=== PATIENT | female | born 1945 | race Caucasian/White ===

== ENCOUNTER 2021-05-17 14:08 | Emergency (ER) | payer MEDICARE, SELFPAY ==
[2021-05-17] VITALS (7 sets, daily range): BP systolic 108–113; BP diastolic 58–88; PULSE 80–94; RESP 16–27; TEMP 37.3; O2SAT 88–100
--- NOTE | ~2021-05-17 | XR_ITS ---
XR chest 2V DATE: 05/17/2021 16:44 INDICATION: Cough, shortness of breath, hypertension TECHNIQUE: PA and lateral views COMPARISON: None FINDINGS: Reviewed bilateral hyperinflation suggesting COPD. There is minimal atelectasis or infiltra te at the lung bases. No pulmonary infiltrate or consolidation is noted otherwise. No pleural effusion or pulmonary vascular congestion or pneumothorax. There is cardiomegaly and extensive thoracic aortic calcification. Pectus excavatum. No hilar or mediastinal enlargement. There is diffuse osteopenia. IMPRESSION: Bilateral hyperinflation suggesting COPD Cardiomegaly Aortic atherosclerosis Minimal infiltrate or atelectasis at the lung bases Reviewed, dictated and finalized at location A.
--- NOTE | 2021-05-17 16:32 | ECG_ITS ---
Measurements Intervals [place] Rate: 81 P: PA: 0 QRS: 67 QRSD: 90 T: 13 QT: 331 QTc: 385 Interpretive Statements ATRIAL FIBRILLATION DELAYED PRECORDIAL R/S TRANSITION BASELINE ARTIFACT- I, II, III, AVR, AVL, V3, V6 ABNORMAL ECG Electronically Signed On 05-18-2021 6:31:43 CDT by Carl Johnson D.O.
[2021-05-17 16:46] LABS: Basophils Percent Auto 0.6 % (0.2-1.2); Eosinophils Percent Auto 0.6 % (0-4.4); Hematocrit 37.4 % (37.0-47.0); Immature Granulocyte Absolute 0.04 K/mm3 (0.00-0.031); Immature Granulocyte Percent A 0.8 % (0-0.5); Lymphocytes Absolute Auto 0.53 K/mm3 (0.9-3.2); Mean Corpuscular HGB Conc 29.4 g/dl (32-36); Mean Corpuscular Hemoglobin 23.9 pg (26-34); Mean Corpuscular Volume 81.3 fl (80-100); Mean Platelet Volume 11.2 fl (7.4-10.4); Monocytes Absolute Auto 0.5 K/mm3 (0.1-0.6); Monocytes Percent Auto 9.6 % (2.6-8.5); Neutrophils Absolute Auto 3.7 K/mm3 (1.3-6.7); Neutrophils Percent Auto 77.4 % (45.5-73.1); Platelet Count Result 135 k/mm3 (150-375); Red Cell Distribution Width 18.9 % (11.5-14.5); White Blood Count 4.8 K/mm3 (4.5-10.0)
[2021-05-17 17:06] LABS: Anisocytosis 1+ (NORMAL); Ovalocytes 2+ (NORMAL); Platelet Estimate Adequate (Adequate)
[2021-05-17 17:07] LABS: Hypochromasia 1+ (NORMAL); Tear Drop Cells 1+ (NORMAL)
[2021-05-17 17:08] LABS: Anion Gap 10 mmol/L (8-16); Blood Urea Nitrogen 9 mg/dL (7-17); Carbon Dioxide 23 mmol/L (22-30); Chloride 101 mmol/L (98-107); Estimated CRCL calculation 59 ml/min; Estimated Glomerular Filt Rate > 60; Glucose 86 mg/dL (65-110); Potassium 4.5 mmol/L (3.4-5.0); Sodium 134 mmol/L (137-145)
[2021-05-17] MEDS: ALBUTEROL SULFATE NEB 2.5 MG/0.5 ML INH 5 MG INHALATION (17:33)
[2021-05-17] MEDS: IPRATROPIUM BR 0.02% INH SOLN 0.5 MG/2.5 ML VIAL INHALATION (17:34)
[2021-05-17] MEDS: methylPREDNISolone SOD SUCC 125 MG VIAL IV PUSH (19:03)
--- NOTE | 2021-05-17 19:05 | ED.SOB ---
HPI - SOB/Dyspnea General Chief Complaint: Shortness of Breath/Dyspnea Stated Complaint: cough Time Seen by Provider: 05/17/21 16:40 Source: patient Mode of arrival: ambulatory Limitations: no limitations History of Present Illness HPI Narrative: 25-year-old with a history of pulmonary hypertension, COPD, A. fib here with complaints of cough since yesterday. Patient states that she coughed all night long finally took 1 hydrocodone tablet and felt little better. She denied any fever. Cough is nonproductive. No history of chest pain or shortness of breath. MD elicited complaint: cough Pertinent past history: COPD Onset (ago): day(s) (1) Timing: intermittent Severity: moderate Exacerbating factors: nothing Known history of: COPD Associated symptoms: denies other symptoms Related Data Allergies Allergy/AdvReac Type Severity Reaction Status Date / Time iodine Allergy Unknown Verified 05/17/21 17:37 Penicillins Allergy Unknown Verified 05/17/21 17:37 Sulfa (Sulfonamide Allergy Unknown Verified 05/17/21 17:37 Antibiotics) Review of Systems Review of Systems: All systems reviewed & are unremarkable except as noted in HPI and below Constitutional: Constitutional: Reports no additional constitutional complaints Eyes: Eyes: Reports no additional eye complaints ENT: Reports system reviewed and no additional complaints, except as documented Cardiovascular: Cardiovascular: Reports no additional cardiovascular complaints Respiratory: Respiratory: Reports as per HPI Gastrointestinal: Gastrointestinal: Reports no additional gastrointestinal complaints Musculoskeletal: Musculoskeletal: Reports no additional musculoskeletal complaints Integumentary/Breasts: Skin/Breast: Reports system reviewed and no additional complaints, except as docu Neurologic: Reports system reviewed and no additional complaints, except as documented Psychiatric: Psychiatric: Reports no additional psychiatric complaints Exam Narrative: GENERAL: Well-appearing, well-nourished, and in no acute distress. HEAD: Normocephalic, atraumatic. EYES: PERRLA and EOMI. NECK: Supple. No adenopathy or masses. No carotid bruits or JVD CHEST: Bilateral mild wheezing poor air entry. HEART: Irregularly irregular. No murmur heard. Normal peripheral pulses. ABDOMEN: Soft, nontender, nondistended, normal active bowel sounds. EXTREMITIES: Normal range of motion. No edema. SKIN: Warm, dry, no rash. NEURO: No focal deficits. Alert and oriented x3. PSYCH: Normal mood and affect Course Course Emergency Course: Patient states that she is feeling much better after nebulizer treatment, informed her about her lab work, x-ray findings. Patient states that she wants to go home. Advised to take antibiotic as prescribed. Vital Signs Vital signs: Vital Signs Temperature 37.3 C 05/17/21 16:28 Pulse Rate 89 05/17/21 16:28 Respiratory Rate 18 05/17/21 16:28 Blood Pressure 113/88 05/17/21 16:28 Pulse Oximetry 88 L 05/17/21 16:28 Temperature 37.3 C 05/17/21 16:28 Pulse Rate 93 05/17/21 19:01 Respiratory Rate 27 H 05/17/21 19:01 Blood Pressure 108/67 05/17/21 19:01 Pulse Oximetry 95 05/17/21 19:01 MDM - SOB/Dyspnea Lab Data Result diagrams: 05/17/21 16:36 05/17/21 16:36 Labs: Lab Results 05/17/21 05/17/21 Range/Units 16:36 16:36 WBC 4.8 (4.5-10.0) K/mm3 RBC 4.60 (4.2-5.4) M/mm3 Hgb 11.0 L (12.0-15.0) g/dL Hct 37.4 (37.0-47.0) % MCV 81.3 (80-100) fl MCH 23.9 L (26-34) pg MCHC 29.4 L (32-36) g/dl RDW 18.9 H (11.5-14.5) % Plt Count 135 L (150-375) k/mm3 MPV 11.2 H (7.4-10.4) fl Immature Gran % (Auto) 0.8 H (0-0.5) % Neut % (Auto) 77.4 H (45.5-73.1) % Lymph % (Auto) 11.0 L (18.3-44.2) % [place] % (Auto) 9.6 H (2.6-8.5) % Eos % (Auto) 0.6 (0-4.4) % Baso % (Auto) 0.6 (0.2-1.2) % Lymph # (Auto) 0.53 L (0.9-3.2) K/mm3 Terry # (Auto) 0.5 (
== END 2021-05-17 19:36 | disposition home or self-care (01) ==
PROVIDERS: Emergency Medicine; Emergency Provider Family Medicine; PCP Student in an Organized Health Care Education/Training Program
DX: I48.21 Permanent atrial fibrillation (principal); J40 Bronchitis, not specified as acute or chronic; J44.9 Chronic obstructive pulmonary disease, unspecified; I27.20 Pulmonary hypertension, unspecified
CPT/HCPCS: 36415; 71046; 80048; 85025; 93005; 94640; 96374; 99284; J2930

== ENCOUNTER 2022-05-02 12:07 | Emergency (ER) | payer MEDICARE, SELFPAY ==
--- NOTE | ~2022-05-02 | XR_ITS ---
EXAMINATION: XR chest 2V DATE: 05/02/2022 13:06 INDICATION: Cough and dyspnea on exertion TECHNIQUE: PA and lateral views of the chest are obtained. COMPARISON: 05/17/2021 FINDINGS: The lungs are hyperinflated but free of acute opacities. No pleural effusion or pneumothora x. Cardiomegaly is noted. There is severe thoracic spondylosis. IMPRESSION: 1. Hyperinflation without acute cardiopulmonary abnormality. Reviewed, dictated and finalized at location A.
[2022-05-02 12:29] VITALS: BP 100/39; PULSE 80; RESP 20; TEMP 36.8; O2SAT 99
--- NOTE | 2022-05-02 15:58 | ED.URI ---
HPI - URI/Sore Throat General Chief Complaint: Upper Respiratory Infection Stated Complaint: coughing attacks with mucus Time Seen by Provider: 05/02/22 15:28 Source: patient Mode of arrival: ambulatory Limitations: no limitations History of Present Illness HPI Narrative: This is a 76 year old female that presents to the ER for productive cough. Ongoing over the last 2 weeks. Associated with congestion and rhinorrhea. Denies fever or shortness of breath. Related Data Home Medications Medication Instructions Recorded Confirmed ambrisentan 10 mg tablet (Letairis) 10 mg PO DAILY 05/23/21 07/12/21 apixaban 5 mg tablet (Eliquis) 5 mg PO BID 05/23/21 07/12/21 digoxin 125 mcg (0.125 mg) tablet 125 mcg PO DAILY 05/23/21 07/12/21 metoprolol tartrate 25 mg tablet See Rx Instructions PO .COMPLEX 05/23/21 07/12/21 selexipag 600 mcg tablet (Uptravi) 600 mcg PO BID 05/23/21 07/12/21 sildenafil (pulm.hypertension) 20 See Rx Instructions .Route .COMPLEX 05/23/21 07/12/21 mg tablet Allergies Allergy/AdvReac Type Severity Reaction Status Date / Time iodine Allergy Unknown Verified 05/02/22 15:18 Penicillins Allergy Unknown Verified 05/02/22 15:18 Sulfa (Sulfonamide Allergy Unknown Verified 05/02/22 15:18 Antibiotics) Review of Systems Review of Systems: CONSTITUTIONAL: Denies fever ENT: Reports rhinorrhea, congestion CARDIOVASCULAR: Denies chest pain RESPIRATORY: Reports cough. Denies dyspnea. All systems reviewed & are unremarkable except as noted in HPI and below PMFSH Past Medical History Medical History Allergies Asthma COPD (chronic obstructive pulmonary disease) GERD (gastroesophageal reflux disease) Migraine Old [place] (myocardial infarction) Pulmonary hypertension Family History Family History Unknown Alcoholism Carcinoma of colon Heart disease Emphysema lung Social History Social History Alcohol intake: never Substance use: current Substance use type: marijuana Other substance usage details: (Gummies) Exam Narrative: GENERAL: Well-appearing, well-nourished, and in no acute distress. HEAD: Normocephalic, atraumatic. EYES: EOMI. ENT: Nares clear, no rhinorrhea or epistaxis. Mucous membranes moist. Oropharynx without tonsillar hypertrophy exudate or other lesions. NECK: Supple. No adenopathy or masses. CHEST: No respiratory distress. Scattered wheezes. No rales or rhonchi HEART: Regular rate and rhythm. No murmur heard. Normal peripheral pulses. EXTREMITIES: Normal range of motion. No edema. SKIN: Warm, dry, no rash. NEURO: No focal deficits. Alert and oriented x3. PSYCH: Normal mood and affect Course Vital Signs Vital signs: Vital Signs Temperature 98.2 F 05/02/22 12:29 Pulse Rate 80 05/02/22 12:29 Respiratory Rate 20 05/02/22 12:29 Blood Pressure 100/39 L 05/02/22 12:29 Pulse Oximetry 99 05/02/22 12:29 Oxygen Delivery Room Air 05/02/22 12:29 Temperature 98.2 F 05/02/22 12:29 Pulse Rate 80 05/02/22 16:26 Respiratory Rate 18 05/02/22 16:26 Blood Pressure 100/39 L 05/02/22 12:29 Pulse Oximetry 99 05/02/22 12:29 Oxygen Delivery Room Air 05/02/22 15:15 MDM - URI/Sore Throat MDM Narrative Medical decision making narrative: Patient presents emergency department for productive cough and wheezing. Worsening over the last 2 weeks. Patient with mild wheezing on exam. She is afebrile and nontoxic-appearing. Her vitals are stable. Influenza and COVID screens are negative. Chest x-ray without acute cardiopulmonary abnormality. Patient will be started on steroids and antibiotic for COPD exacerbation. She is to follow-up with her primary care provider. She was given warnings to return to the ER Lab Data Labs: Lab Results 05/02/22 Range/Units 16:28 Influenza A (RT
[2022-05-02 16:16] VITALS: PULSE 80; RESP 18
[2022-05-02] MEDS: IPRATROPIUM BR 0.02% INH SOLN 0.5 MG/2.5 ML VIAL INHALATION (16:17)
[2022-05-02 16:26] VITALS: PULSE 80; RESP 18
[2022-05-02 17:11] LABS: Influenza A QL RT-PCR Negative (Negative); Influenza B QL RT-PCR Negative (Negative); SARS-CoV-2 RNA PCR Negative
[2022-05-02 17:24] VITALS: BP 124/72; PULSE 93; RESP 20; O2SAT 99
== END 2022-05-02 17:37 | disposition home or self-care (01) ==
PROVIDERS: Physician Assistant; Emergency Provider Emergency Medicine; PCP Family Medicine
DX: J44.1 Chronic obstructive pulmonary disease with (acute) exacerbation (principal); Z20.822 Contact with and (suspected) exposure to COVID-19; K21.9 Gastro-esophageal reflux disease without esophagitis; I25.2 Old myocardial infarction; I27.20 Pulmonary hypertension, unspecified; Z79.01 Long term (current) use of anticoagulants
CPT/HCPCS: 71046; 87502; 94640; 96372; 99283; C9803; J1100; U0003; U0005

== ENCOUNTER 2022-05-04 03:12 | Inpatient (IN) | payer MEDICARE, SELFPAY ==
[2022-05-04] VITALS (46 sets, daily range): BP systolic 97–152; BP diastolic 52–94; PULSE 56–166; RESP 16–40; TEMP 36.1–37; O2SAT 93–100; BMI 19.5
--- NOTE | 2022-05-04 | ECG_ITS ---
Measurements Intervals [place] Rate: 97 P: [place]: 0 QRS: 68 QRSD: 93 T: 7 QT: 332 QTc: 423 Interpretive Statements ATRIAL FIBRILLATION MODERATE ST DEPRESSION [0.05+ mV ST DEPRESSION] COMPARED TO ECG 05/04/2022 03:18:43 VENTRICULAR RESPONSE TO ATRIAL FIB IS NOW CONTROLLED Electronically Signed On 05-04-2022 14:03:09 CDT by Darrion Zhang M.D.
--- NOTE | ~2022-05-04 | CT_ITS ---
EXAMINATION:CT diagnostic chest wo con DATE: 05/08/2022 11:02 INDICATION: Respiratory failure. TECHNIQUE: Computed tomography (CT) of the chest was performed without intravenous contrast. Automate d exposure control and iterative reconstruction technique were employed. The dose-length product (DLP ) was 156.71 mGy-cm. COMPARISON: Chest single view 05/07/2022 FINDINGS: There are small pleural effusions. There is diffuse septal thickening in the lungs. There a re widespread groundglass opacities in the lungs with a lower lung predominance. There are a few smal l peripheral airspace opacities and scattered nodules in the lungs. The largest nodule measures 7 mm in right upper lobe. There is mild scarring at the lung apices. Cardiomegaly is noted. There are laron nary artery calcifications. The central pulmonary arteries are enlarged, consistent with pulmonary ar terial hypertension. Calcified right hilar lymph nodes are consistent with old granulomatous disease. There is liver surface nodularity, consistent with cirrhosis. There is a gallstone in the gallbladde r, which is normal in size. There is severe cervical spondylosis and moderate thoracic spondylosis. IMPRESSION: 1. Diffuse lung disease, likely a combination of mild pulmonary edema and chronic lung disease. 2. Pulmonary nodules measuring up to 7 mm, probably benign. Noncontrast low-dose chest CT is recommen ded in 6 months. 3. Small pleural effusions. 4. Cardiomegaly. 5. Cirrhosis of the liver. Reviewed, dictated and finalized at location A. IMPRESSION: 1. Diffuse lung disease, likely a combination of mild pulmonary edema and chron ic lung disease. 2. Pulmonary nodules measuring up to 7 mm, probably benign. Noncontrast low-dos e chest CT is recommended in 6 months. 3. Small pleural effusions. 4. Cardiomegaly. 5. Cirrhosis of the liver.
--- NOTE | ~2022-05-04 | XR_ITS ---
EXAMINATION: XR chest 1V portable DATE: 05/04/2022 04:21 INDICATION: Dyspnea TECHNIQUE: frontal view of the chest was obtained. COMPARISON: Chest radiograph dated 05/02/2022 FINDINGS: There is increased interstitial pattern in the bilateral lower lung zones. Very small bilateral pleur al effusions with minimal blunting at the costophrenic angles. No pneumothorax. Cardiomegaly. IMPRESSION: 1. Increased interstitial pattern at the lower lung zones likely congestive heart failure related mil d pulmonary edema with differential including pneumonia. 2. Very small bilateral pleural effusions. 3. Cardiomegaly. Reviewed, dictated and finalized at location A. IMPRESSION: 1. Increased interstitial pattern at the lower lung zones likely congestive hea rt failure related mild pulmonary edema with differential including pneumonia. 2. Very small bilateral pleural effusions. 3. Cardiomegaly.
--- NOTE | ~2022-05-04 | XR_ITS ---
EXAMINATION: XR chest 1V portable INDICATION: Worsening respiratory status TECHNIQUE: Portable AP chest at 0827 hours COMPARISON: 05/04/2022 FINDINGS: Cardiomegaly is noted. There are trace pleural effusions. The previously described diffuse interstitial pattern persists with slight improvement. No pneumothorax is identified. IMPRESSION: 1. Cardiomegaly with improving pulmonary edema. Reviewed, dictated and finalized at location A.
--- NOTE | ~2022-05-04 | XR_ITS ---
EXAMINATION: XR chest 1V portable DATE: 05/07/2022 05:50 INDICATION: Acute respiratory failure TECHNIQUE: frontal view of the chest was obtained. COMPARISON: Chest radiograph dated 05/02/2022 and 05/05/2022 FINDINGS: Mild streaky atelectasis at the lung bases. No pulmonary edema, pleural effusion or pneumothorax. Car diomegaly. Atherosclerotic aorta. IMPRESSION: 1. Mild streaky bibasilar atelectasis. 2. Cardiomegaly. Reviewed, dictated and finalized at location A.
--- NOTE | 2022-05-04 04:33 | ED.SOB ---
HPI - SOB/Dyspnea General Chief Complaint: Shortness of Breath/Dyspnea Stated Complaint: SOB ON CPAP Time Seen by Provider: 05/04/22 03:18 History of Present Illness HPI Narrative: This is a 76-year-old female with past medical history of pulmonary hypertension and previous episodes of flash pulmonary edema, brought in by EMS for shortness of breath. EMS reports the patient complained of shortness of breath for the last several days, suddenly worsening this evening. She was placed on CPAP and given 80 of Lasix IV with Nitropaste placed on the chest. Patient states she has intermittent chest tightness but denies chest pain. Related Data Allergies Allergy/AdvReac Type Severity Reaction Status Date / Time Penicillins Allergy Unknown Verified 05/04/22 05:08 Review of Systems Review of Systems: Review of systems limited by acuity CONSTITUTIONAL: Denies fever, chills, or sweats. CARDIOVASCULAR: Chest tightness denies chest pain, palpitations, or edema. RESPIRATORY: Dyspnea, cough PMFSH Past Medical History Medical History (Updated 05/04/22 @ 05:10 by Jacek Menjivar MD) Pulmonary hypertension Social History Social History (Updated 05/04/22 @ 04:35 by Jacek Menjivar MD) Smoking status: Never smoker Alcohol intake: never Substance use: never Exam Narrative: GENERAL: Well-developed, thin, in distress due to dyspnea HEAD: Normocephalic, atraumatic. EYES: PERRLA and EOMI. ENT: Nares clear, no rhinorrhea or epistaxis. Mucous membranes moist. Oropharynx without tonsillar hypertrophy exudate or other lesions. NECK: Supple. No adenopathy or masses. No carotid bruits or JVD CHEST: Diffuse Rales, tripoding, no wheezes or rhonchi HEART: Irregularly irregular. No murmur heard. Normal peripheral pulses. ABDOMEN: Soft, nontender, nondistended, normal active bowel sounds. EXTREMITIES: Normal range of motion. No edema. SKIN: Warm, dry, no rash. NEURO: No focal deficits. Alert and oriented x3. PSYCH: Normal mood and affect. Course Course Emergency Course: 04:49 - Patient's heart rate improved to the 110s with blood pressure remaining in the 110s. Will attempt to wean BiPAP. Labs pending, delayed by current EHR maintenance downtime. 05:15 - Attempted to wean patient however she was unable to tolerate. 06:00 - ECG shows improved heart rate as well as improvement of previously noted ST depressions in inferior and lateral leads. 07:26 - Discussed patient with hospitalist, Dr. Jackson who accepts patient to IMU. Vital Signs Vital signs: Vital Signs Pulse Rate 166 H 05/04/22 03:08 Respiratory Rate 30 H 05/04/22 03:08 Blood Pressure 144/93 H 05/04/22 03:08 Pulse Oximetry 94 05/04/22 03:08 Oxygen Delivery CPAP 05/04/22 03:08 Oxygen Flow Rate 25 05/04/22 03:08 Pulse Rate 92 05/04/22 06:15 Respiratory Rate 25 H 05/04/22 06:15 Blood Pressure 112/75 05/04/22 06:01 Pulse Oximetry 99 05/04/22 06:15 Oxygen Delivery BiPAP 05/04/22 05:45 Oxygen Flow Rate 25 05/04/22 03:08 MDM - SOB/Dyspnea MDM Narrative Medical decision making narrative: Plan: Labs, BiPAP, imaging, albuterol, continued Nitropaste, reassess Differential Diagnosis Differential diagnosis: Likely other (Flash pulmonary edema, pulmonary hypertension, COVID, ACS, pneumonia, metabolic abnormality, other) Lab Data Result diagrams: 05/04/22 03:21 05/04/22 03:19 Labs: Lab Results 05/04/22 05/04/22 Range/Units 03:19 03:21 WBC 13.8 H (4.5-10.0) K/mm3 RBC 4.66 (4.2-5.4) M/mm3 Hgb 14.1 (12.0-15.0) g/dL Hct 43.8 (37.0-47.0) % MCV 94.0 (80-100) fl MCH 30.3 (26-34) pg MCHC 32.2 (32-36) g/dl RDW 13.8 (11.5-14.5) % Plt Count 156 (150-375) k/mm3 MPV 11.2 H (7.4-10.4) fl Immature Gran % (Auto) 0.7 H (0-0.5) % Neut % (Auto) 81.9 H (45.5-73.1) % Lymph % (Auto) 10.5 L (18.3-44.2) % [place] % (Auto) 6.7 (2.6-8.5) % Eos % (Auto) 0.1 (0
--- NOTE | 2022-05-04 04:52 | PC.NURSE ---
I have verified patients name is kit kumar is 1945. [id number]
[2022-05-04 04:58] LABS: Basophils Percent Auto 0.1 % (0.2-1.2); Eosinophils Percent Auto 0.1 % (0-4.4); Hematocrit 43.8 % (37.0-47.0); Hemoglobin 14.1 g/dL (12.0-15.0); Immature Granulocyte Absolute 0.09 K/mm3 (0.00-0.031); Immature Granulocyte Percent A 0.7 % (0-0.5); Lymphocytes Absolute Auto 1.44 K/mm3 (0.9-3.2); Lymphocytes Percent Auto 10.5 % (18.3-44.2); Mean Corpuscular HGB Conc 32.2 g/dl (32-36); Mean Corpuscular Hemoglobin 30.3 pg (26-34); Mean Platelet Volume 11.2 fl (7.4-10.4); Monocytes Absolute Auto 0.9 K/mm3 (0.1-0.6); Monocytes Percent Auto 6.7 % (2.6-8.5); Neutrophils Absolute Auto 11.3 K/mm3 (1.3-6.7); Neutrophils Percent Auto 81.9 % (45.5-73.1); Platelet Count Result 156 k/mm3 (150-375); Red Blood Count 4.66 M/mm3 (4.2-5.4); Red Cell Distribution Width 13.8 % (11.5-14.5); White Blood Count 13.8 K/mm3 (4.5-10.0)
--- NOTE | 2022-05-04 05:06 | PC.NURSE ---
attempted to remove bipap patient began coughing and tachycardic bipap placed back on patient
[2022-05-04 05:16] LABS: Alanine Aminotransferase 28 U/L (6-35); Albumin Level 4.4 g/dL (3.5-5.1); Alkaline Phosphatase 89 U/L (38-126); Anion Gap 12 mmol/L (8-16); Aspartate Amino Transferase 31 U/L (14-36); Bilirubin,Total 0.9 mg/dL (0.2-1.3); Blood Urea Nitrogen 20 mg/dL (7-17); Calcium 9.2 mg/dL (8.4-10.2); Carbon Dioxide 22 mmol/L (22-30); Chloride 100 mmol/L (98-107); Estimated CRCL calculation 43 ml/min; Estimated Glomerular Filt Rate > 60; Glucose 143 mg/dL (65-110); Potassium 3.6 mmol/L (3.4-5.0); Sodium 134 mmol/L (137-145)
--- NOTE | 2022-05-04 05:53 | ECG_ITS ---
Measurements Intervals [place] Rate: 159 P: CT: 0 QRS: 97 QRSD: 189 T: 0 QT: 259 QTc: 422 Interpretive Statements ATRIAL FIBRILLATION WITH RAPID VENTRICULAR RESPONSE WITH ABERRANT CONDUCTION OR VENTRICULAR PREMATURE COMPLEXES LATERAL ST SEGMENT DEPRESSION CONSIDER ISCHEMIA ABNORMAL ECG NO PREVIOUS ECG AVAILABLE FOR COMPARISON Electronically Signed On 05-04-2022 14:01:06 CDT by Darrion Zhang M.D.
[2022-05-04 06:11] LABS: NT Pro B Type Natriuretic Pept 2780 pg/mL (5-100); Troponin I < 0.012 ng/mL (0.000-0.034)
[2022-05-04] MEDS: ALBUTEROL SULFATE NEB 2.5 MG/3 ML INH 5 MG INHALATION (06:43)
--- NOTE | 2022-05-04 07:35 | PC.NURSE ---
Per ANDRÉS Tamez patient received IV Decadron at 0315 during downtime charting.
--- NOTE | 2022-05-04 08:34 | PC.NURSE ---
Per EDP [place], trial patient without biPAP. Patient placed on 6L nasal cannula at this time. Oxygen 98%.
--- NOTE | 2022-05-04 09:16 | ADMGEN ---
This patient, Sylvia You, was admitted to IMU Room 232-01. Patient/family oriented to hospital policies and general routines including ID bracelet, bed and alarms, visiting hours, pain management, procedures, bathroom and other care routines, personal items, smoking policy, room service/diet, and visiting hours. Information on how to activate the Rapid Response Team has been discussed. Patient/Family are encouraged to report perceived risks to care and to ask questions if they do not understand what they are told or what they should do.
[2022-05-04 09:44] LABS: SARS-CoV-2 RNA PCR Negative
--- NOTE | 2022-05-04 12:09 | PM.IMHP ---
H&P: HPI History of Present Illness Date/Time: 05/04/22 12:09 Chief Complaint: Shortness of breath Narrative: this is a 76-year-old female patient who has a history of COPD, pulmonary hypertension, and atrial fibrillation. The patient stated that she was here on the with a coughing attack that has been ongoing for the last 2 weeks. The patient was sent home with prednisone and Levaquin. The patient stated that she got worse last night and she was having difficulty breathing. She does have oxygen at home that she uses p.r.n.. The patient stated she just felt like she could not catch her breath and she did have the energy to bring herself to the hospital. She called the ambulance. Patient was placed on a CPAP and given 80 of Lasix with nitro Paste placed on her chest. the patient is currently down to 5 L per nasal cannula and is talking in full sentences. However the patient become short of breath with minimal exertion. She has wheezing and rhonchi. Her white count is 13.8. Chest x-ray was read as increased interstitial pattern at the lower lung zones likely congestive heart failure related to pulmonary edema with differential including pneumonia. Very small bilateral pleural effusions. Cardiomegaly. The patient stated she has not had any previous diagnosis of congestive heart failure. BNP 2780. sHe is negative for COVID. She is being admitted to observation status on the date of service of 05/04/2022. Review of Systems Review of Systems: See HPI All systems reviewed & are unremarkable except as noted in HPI and below Constitutional: Constitutional: Reports as per HPI and Reports no additional constitutional complaints Eyes: Eyes: Reports as per HPI and Reports no additional eye complaints ENT: Reports system reviewed and no additional complaints, except as documented and Reports Normal hearing present Cardiovascular: Cardiovascular: Reports no additional cardiovascular complaints Respiratory: Respiratory: Reports no additional respiratory complaints and Reports no additional respiratory complaints Gastrointestinal: Gastrointestinal: Reports as per HPI and Reports no additional gastrointestinal complaints Musculoskeletal: Musculoskeletal: Reports no additional musculoskeletal complaints Integumentary/Breasts: Skin/Breast: Reports system reviewed and no additional complaints, except as docu and Reports as per HPI Neurologic: Reports system reviewed and no additional complaints, except as documented, Reports as per HPI and Reports Normal hearing present Psychiatric: Psychiatric: Reports no additional psychiatric complaints and Reports as per HPI Endocrine: Endocrine: Reports no additional endocrine complaints Hematologic/Lymphatic: Hematologic/Lymphatic: Reports no additional hematologic/lymphatic complaints Allergic/Immunologic: Allergic/Immunologic: Reports no additional allergic/immunologic complaints [facility] Past Medical History Medical History (Updated 05/04/22 @ 14:41 by Evelyn Xiong NP) Allergies Asthma Chronic diarrhea COPD (chronic obstructive pulmonary disease) GERD (gastroesophageal reflux disease) 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 History of myocardial infarction Hx of migraines Hyperlipidemia Hypertension Hypothyroidism Migraine Old [place] (myocardial infarction) Otitis media, left Pulmonary hypertension Pulmonary hypertension Surgical History Surgical History H/O cataract extraction H/O heart artery stent x3 H/O sinus surgery History of appendectomy Family History Family History (Updated 05/04/22 @ 14:24 by Evelyn Xiong NP) Unknown Alcoholism brother Carcinoma of colon dad Heart disease Emphysema lung Mother Lung cancer Social History Social History (Updated 05/04/22 @ 14:25 by Evelyn Xiong NP) Social History: the patient is . She lives with her friend who came with her from [place].
[2022-05-04] MEDS: ALBUTEROL SULFATE NEB 2.5 MG/3 ML INH INHALATION (13:27)
[2022-05-04] MEDS: methylPREDNISolone SOD SUCC 40 MG VIAL IV PUSH (14:13)
[2022-05-04] MEDS: FUROSEMIDE INJ 40 MG/4 ML VIAL 20 MG IV PUSH (14:13)
[2022-05-04] MEDS: levoFLOXacin 500 MG/D5W 100 ML 500 MG/100 ML BAG 100 MG IVPB (15:32)
[2022-05-04] MEDS: guaiFENesin/DEXTROMETHORPHAN 10 ML UDC PO (15:40)
[2022-05-04] MEDS: MAGNESIUM SULF 2 GM/WATER 50ML 2 GM/50 ML BAG IVPB (15:40)
[2022-05-04] MEDS: DIGOXIN INJ 250 MCG/ML 2 ML AMP (*BKC) 125 MCG IV PUSH (15:41)
[2022-05-04] MEDS: methylPREDNISolone SOD SUCC 125 MG VIAL 80 MG IV PUSH ×2 (15:50→23:40)
[2022-05-04] MEDS: BUMETANIDE INJ 1 MG/4 ML VIAL IV PUSH (15:50)
[2022-05-04] MEDS: SILDENAFIL CITRATE 20 MG TABLET 60 MG BY MOUTH (15:50)
[2022-05-04] MEDS: METOPROLOL TARTRATE 25 MG TABLET BY MOUTH (15:50)
--- NOTE | 2022-05-04 17:17 | PHAR ---
The following home meds have been verified by pharmacy: --ambrisentan 10 mg tabs --Uptravi (selexipag) 800 mcg tabs
[2022-05-04] MEDS: IPRATROPIUM BR 0.02% INH SOLN 0.5 MG/2.5 ML VIAL INHALATION (20:05)
[2022-05-05] VITALS (39 sets, daily range): BP systolic 86–134; BP diastolic 51–78; PULSE 59–145; RESP 15–44; TEMP 36.1–37.1; O2SAT 88–99
--- NOTE | 2022-05-05 | ECHO_ITS ---
Patient Info Name: Sylvia You Age: 76 years : 1945 Gender: Female Ht: 64 in Wt: 113 lbs BSA: 1.52 m2 HR: 90 bpm BP: 112 / 52 mmHg Heart Rhythm: Indeterminant Technical Quality: Good Exam Date: 05/05/2022 2:49 PM Exam Location: [facility] Pulmonary Patient Status: Inpatient Admit Date: 05/05/2022 Staff Ordering Physician: Evelyn Xiong NP Manufacturing Process Engineer: Uri Yeh RDCS Attending Provider: Darrion Jackson MD Referring Physician: Tyrese ESTES; Exam Type: CA echo doppler color flow Study Info Indications - pulmonary edema Complete two-dimensional, color flow and Doppler transthoracic echocardiogram is performed. Summary 1. Complete two-dimensional, color flow and Doppler transthoracic echocardiogram is performed. 2. Normal left ventricular size and thickness with good contractility of all segments. No segmental wall motion abnormality. Ejection fraction is 66%. Diastolic function is indeterminate. 3. Left atrial chamber dimension is moderately enlarged. 4. Right atrial chamber dimension is severely enlarged. 5. Right ventricular chamber dimension is mildly enlarged with mild hypokinesis. 6. There is mild aortic valve regurgitation. 7. There is mild mitral valve regurgitation. 8. There is moderate tricuspid valve regurgitation. 9. Moderately severe pulmonary hypertension, estimated pulmonary arterial systolic pressure is 64 mmHg. 10. Rhythm indeterminate. Left Ventricle Left ventricular chamber dimension is normal. Left ventricular systolic function is normal, estimated at 65-70%. There is no increased left ventricular wall thickness. Left ventricular septal wall motion is normal. The left ventricular diastolic function is indeterminate. Right Ventricle Right ventricular chamber dimension is mildly enlarged with mild hypokinesis. Right ventricular systolic function is reduced. Left Atria Left atrial chamber dimension is moderately enlarged. Right Atria Right atrial chamber dimension is severely enlarged. Aortic Valve The aortic valve is trileaflet. There is mild aortic valve sclerosis. There is no aortic valve stenosis. There is mild aortic valve regurgitation. Pulmonic Valve The pulmonic valve is normal. There is no pulmonic valve stenosis. There is no pulmonic regurgitation. Mitral Valve The mitral valve has normal leaflets. There is no mitral valve stenosis. There is mild mitral valve regurgitation. Tricuspid Valve The tricuspid valve leaflets are normal. There is no significant tricuspid valve stenosis. There is moderate tricuspid valve regurgitation. Moderately severe pulmonary hypertension, estimated pulmonary arterial systolic pressure is 64 mmHg. Pericardium/Pleural The pericardium appears normal. There is no pericardial effusion. Inferior Vena Cava Dilated inferior vena cava with no collapse upon inspiration consistent with Empty right atrial pressure, 20 mmHg. Aorta The aortic root size at the sinus of Valsalva is normal. The prox ascending aorta size is normal. Left Ventricular Outflow Tract Name Value Normal LVOT 2D LVOT Diameter 2.0 cm LVOT Doppler
[2022-05-05] MEDS: IPRATROPIUM BR 0.02% INH SOLN 0.5 MG/2.5 ML VIAL INHALATION ×4 (02:56→20:40)
[2022-05-05 04:39] LABS: Hematocrit 38.3 % (37.0-47.0); Hemoglobin 12.7 g/dL (12.0-15.0); Immature Granulocyte Absolute 0.02 K/mm3 (0.00-0.031); Immature Granulocyte Percent A 0.4 % (0-0.5); Lymphocytes Absolute Auto 0.36 K/mm3 (0.9-3.2); Lymphocytes Percent Auto 6.6 % (18.3-44.2); Mean Corpuscular HGB Conc 33.2 g/dl (32-36); Mean Corpuscular Hemoglobin 30.5 pg (26-34); Mean Corpuscular Volume 91.8 fl (80-100); Mean Platelet Volume 10.7 fl (7.4-10.4); Monocytes Absolute Auto 0.2 K/mm3 (0.1-0.6); Monocytes Percent Auto 3.1 % (2.6-8.5); Neutrophils Absolute Auto 4.9 K/mm3 (1.3-6.7); Neutrophils Percent Auto 89.9 % (45.5-73.1); Platelet Count Result 112 k/mm3 (150-375); Red Blood Count 4.17 M/mm3 (4.2-5.4); Red Cell Distribution Width 14.1 % (11.5-14.5); White Blood Count 5.4 K/mm3 (4.5-10.0)
[2022-05-05 04:48] LABS: Alanine Aminotransferase 26 U/L (6-35); Alkaline Phosphatase 68 U/L (38-126); Anion Gap 12 mmol/L (8-16); Aspartate Amino Transferase 32 U/L (14-36); Bilirubin,Total 1.1 mg/dL (0.2-1.3); Blood Urea Nitrogen 22 mg/dL (7-17); Calcium 9.2 mg/dL (8.4-10.2); Carbon Dioxide 28 mmol/L (22-30); Chloride 99 mmol/L (98-107); Estimated CRCL calculation 43 ml/min; Estimated Glomerular Filt Rate > 60; Glucose 135 mg/dL (65-110); Magnesium 2.5 mg/dL (1.6-2.3); Potassium 3.5 mmol/L (3.4-5.0); Sodium 139 mmol/L (137-145)
[2022-05-05 05:40] LABS: Thyroid Stimulating Hormone Reflex 0.389 uIU/mL (0.465-4.68)
[2022-05-05] MEDS: methylPREDNISolone SOD SUCC 125 MG VIAL 80 MG IV PUSH ×3 (06:11→17:07)
[2022-05-05] MEDS: LEVOTHYROXINE SODIUM 112 MCG TABLET BY MOUTH (06:12)
[2022-05-05] MEDS: guaiFENesin/DEXTROMETHORPHAN 10 ML UDC PO (06:23)
[2022-05-05 07:46] LABS: Total Triiodothyronine (T3) 0.78 NG/ML (0.97-1.69)
[2022-05-05] MEDS: BUMETANIDE INJ 1 MG/4 ML VIAL IV PUSH (08:14)
[2022-05-05 08:53] LABS: Alveolar/Arterial O2 Gradient 237.6 mmHg; Base Excess ABG -2.5 mEq/l (+/-2.0); Carboxyhemoglobin 0.4 % THb (0-2.0); Fractional Inspired Oxygen 50 %; HCO3 ABG 24.7 mEq/l (22.0-26.0); Methemoglobin ABG 0.5 %THb (0-1.5); Oxygen Content ABG 19.9 %vol (16.0-22.0); Oxygen Saturation ABG 88.7 % (95.0-100.0); PCO2 ABG 51.5 mmHg (35.0-45.0); PO2 FiO2 Ratio Arterial Blood 1.22 %; Reduced Hemoglobin 12.5 %THb (0-5.0); Total Hemoglobin 16.4 g/dL (12.0-18.0); pH ABG 7.299 (7.350-7.450)
[2022-05-05 08:55] LABS: Device BIPAP; Oxyhemoglobin 86.6 % THb (90.0-100.0); Site Drawn RIGHT BRACHIAL
[2022-05-05 08:56] LABS: Expiratory Pressure 6 cmH2O; Inspiratory Pressure 12 cmH2O
[2022-05-05] MEDS: METOPROLOL TARTRATE INJ 5 MG/5 ML VIAL IV PUSH (09:13)
[2022-05-05] MEDS: LORazepam INJ (*CRX) 2 MG/ML VIAL 0.25 MG IV PUSH (09:41)
--- NOTE | 2022-05-05 10:30 | WPDCNINT ---
Assessment and Plan Assessment and plan (1) Acute respiratory failure with hypoxia and hypercapnia: Code(s): J96.01 - Acute respiratory failure with hypoxia; J96.02 - Acute respiratory failure with hypercapnia Status: Acute Assessment and Plan: She presented with acute on chronic worsening in her shortness of breath, ABG on BiPAP 12/6 and 50% showed pH 7.299 pCO2 51.4 PO2 61 saturation 88.7%. She normally uses oxygen 2 L at rest 3 L with exertion at home. She had symptoms including a cough and nasal and chest congestion for 2 weeks prior to presentation. On April 30 she was treated with antibiotics and steroids. On May 04 she worsened and presented to the emergency department. This morning May 05 she had acute flash pulmonary edema in extremis, better after Bumex 1 mg without uop, BiPAP changes, and now with switch to AirVO, more effective and comfortable. plan: 1) ICU transfer 2) AirVo as an option; she is struggling to breathe with BiPAP. Her respiratory rate is 38-42, tidal volumes are 400-600, low peak pressures. She is oxygenating with O2 50-60%. 3) Check volume status with Cheetah, noninvasive CO measurement. Patient says she feels dry; she has parched mucous membranes, is thirsty. Jacobs placed in ICU and she has nothing out. She had Bumex at 9:05. She may need fluids, and this can be given if the Cheetah indicates she has low intravascular volume. Her lungs sounds wet, perhaps due to bronchospasm, diffuse wheezing. 4) Treat for COPD exacerbation- steroids, bronchodilators, vibratory valve with dornase kenya to help move secretions. She coughed with production of small amount of purulent sputum when she was transferred to the ICU. She is on empiric antibiotics. 5) Continue to treat her pulmonary hypertension with her own medications which are not on our formulary, Ambrisentan, sildenafil, selexipag. 6) Atrial fibrillation is currently controlled. She is on metoprolol on digoxin at home. Heart rate was up 130s. Now after transfer, atrial fib is in the 80s to 90s. 7) Continue spironolactone, check digoxin level. A fib rate is controlled now that she is in less respiratory distress. 8) DVT and GI prophylaxis 9) Anxiolysis; small amount alprazolam 10) close monitoring and adjustments in care as indicated. (2) Flash pulmonary edema: Code(s): J81.0 - Acute pulmonary edema Status: Acute Assessment and Plan: Improved with above interventions. (3) COPD (chronic obstructive pulmonary disease): Qualifiers: COPD type: COPD with acute exacerbation Qualified Code(s): J44.1 - Chronic obstructive pulmonary disease with (acute) exacerbation Code(s): J44.9 - Chronic obstructive pulmonary disease, unspecified Status: Acute Assessment and Plan: Severe, on O2 at home, inhalers. She is now on IV steroids, bronchodilator nebulized, home inhalers. (4) Atrial fibrillation: Qualifiers: Atrial fibrillation type: longstanding persistent Qualified Code(s): I48.11 - Longstanding persistent atrial fibrillation Code(s): I48.91 - Unspecified atrial fibrillation Status: Acute Assessment and Plan: Improved rate control after IV lopressor, getting her home medications digoxin and metoprolol, Dr Rinku couch. Her rapid afib was due to respiratory distress. (5) Pulmonary hypertension: Code(s): I27.20 - Pulmonary hypertension, unspecified Status: Acute Assessment and Plan: She has severe pulmonary hypertension which is secondary to underlying lung disease with hypoxemia; she is on treatment with Ambrisentan, sildenafil, selexipag. There is no indication to change to Flolan.
--- NOTE | 2022-05-05 10:41 | PC.NURSE ---
Patient transferred to ICU room 2 at 1034 for closer monitoring following respiratory status. This nurse to resume patient care.
--- NOTE | 2022-05-05 10:51 | PM.IMPN ---
Progress Note: A&P Assessment and Plan (1) COPD (chronic obstructive pulmonary disease): Qualifiers: COPD type: COPD with acute exacerbation Qualified Code(s): J44.1 - Chronic obstructive pulmonary disease with (acute) exacerbation Code(s): J44.9 - Chronic obstructive pulmonary disease, unspecified Status: Acute Assessment and Plan: continue with duo nebs. -continue with Levaquin - continue with Solu-Medrol. Patient was requiring BiPAP this morning. Pulmonary consult and Critical Care consult initiated. -transfer to icu (2) Flash pulmonary edema: Code(s): J81.0 - Acute pulmonary edema Status: Acute Assessment and Plan: Continue diuretic. BiPAP as needed. (3) Atrial fibrillation: Qualifiers: Atrial fibrillation type: longstanding persistent Qualified Code(s): I48.11 - Longstanding persistent atrial fibrillation Code(s): I48.91 - Unspecified atrial fibrillation Status: Acute Assessment and Plan: -the patient is on Eliquis so we will continue with that. - Worsening heart rate this morning. IV metoprolol given and it did show improvement in her heart rate - continue with her digoxin. Continue with her metoprolol Cardiology consult echo pending (4) Pulmonary hypertension: Code(s): I27.20 - Pulmonary hypertension, unspecified Status: Acute Assessment and Plan: - an echo has been ordered. -Ambrisentan is non formulary and the patient may bring in her own. Perhaps her roommate can bring it in and have it verified by pharmacy. -Most likely secondary to her COPD. Dex signed she continue with sildenafil for pulmonary hypertension. - continue with selexipag (5) Asthma: Code(s): J45.909 - Unspecified asthma, uncomplicated Status: Acute Assessment and Plan: -Continue with dual nebs. - magnesium was given IV. (6) Hx of migraines: Code(s): Z86.69 - Personal history of other diseases of the nervous system and sense organs Status: Acute Assessment and Plan: -Continue with home medication (7) Chronic diarrhea: Code(s): K52.9 - Noninfective gastroenteritis and colitis, unspecified Status: Acute Assessment and Plan: -we will get stool specimens when able. -this is chronic and does not appear to be C diff. - monitor (8) Hypertension: Code(s): I10 - Essential (primary) hypertension Status: Acute Assessment and Plan: - IV Bumex - continue with metoprolol (9) Hyperlipidemia: Code(s): E78.5 - Hyperlipidemia, unspecified Status: Acute Assessment and Plan: -continue with Crestor (10) Hypothyroidism: Code(s): E03.9 - Hypothyroidism, unspecified Status: Acute Assessment and Plan: -check thyroid level -continue levothyroxine. Subjective Date/time seen: 05/05/22 10:51 Was called this morning due to respiratory distress. Patient is also having AFib with RVR. Exam Const: General: cooperative, healthy appearing, comfortable, no acute distress, well developed, awake, Physically active, average body habitus and well nourished Nutritional Appearance: average body habitus and well nourished Orientation/consciousness: oriented to person, oriented to place, oriented to time and patient oriented x3 Limitations: no limitations HENMT: Head: normal to inspection, No palpable skull fracture present, normocephalic, atraumatic and abrasion Ears: hearing grossly normal bilaterally and external ears normal Face/Nose/Sinus: Normal external nose present and Normal nares present Eyes: General: appearance normal, both eyes and all related structures Alignment and Position: alignment normal Periorbital: periorbital findings normal Eyelids: eyelids normal Sclera: sclerae normal Pupils: Equal, round and reactive pupils present EOM: EOMs intact bilaterally Neck: Neck: normal visual inspection, full R
--- NOTE | 2022-05-05 11:37 | PC.NURSE ---
Hemodynamic monitoring preformed via CHEETAH monitoring device, passive leg raise. SVI -7.4% (Patient not fluid responsive).
--- NOTE | 2022-05-05 11:42 | PM.CNCAR ---
Assessment and Plan Assessment and plan (1) Atrial fibrillation: Qualifiers: Atrial fibrillation type: longstanding persistent Qualified Code(s): I48.11 - Longstanding persistent atrial fibrillation Code(s): I48.91 - Unspecified atrial fibrillation Status: Acute Assessment and Plan: Persistent atrial fibrillation, admitted with RVR likely a response to her respiratory distress. Heart rate now reasonable on her usual medications, metoprolol tartrate 25 mg b.i.d. and digoxin 125 mcg daily Continue anticoagulation with Eliquis. (2) Acute respiratory failure with hypoxia and hypercapnia: Code(s): J96.01 - Acute respiratory failure with hypoxia; J96.02 - Acute respiratory failure with hypercapnia Status: Acute Assessment and Plan: History of pulmonary hypertension and COPD now with an acute exacerbation probably by a viral illness. Requiring high oxygen treatment per hospitalist. (3) CAD (coronary artery disease): Code(s): I25.10 - Atherosclerotic heart disease of [place] coronary artery without angina pectoris Status: Acute Assessment and Plan: history of CAD and prior interventions, none in the last couple of years. the patient had significant ST depression when AFib RVR suggesting ischemia, but no significant chest pain or angina continue usual therapy with Eliquis, statin, metoprolol. History of Present Illness History of Present Illness Consult date/time: 05/05/22 11:42 Reason For Visit: Flash Pulmonary Edema Narrative: Date of service 05/05/2022: Ismael You is a 76-year-old female whom we were asked to see at the request of Dr. Darrion Jackson for advice and opinion regarding her AFib RVR, in consultation. She hasw a h/o CAD and stents, and Primary Pulmonary HTN for which she is followed at [place]. The patient came to the emergency room on 05/02/2022 with a cough and wheezing. Flu and COVID screens were negative and she was discharged on steroids and antibiotics for COPD exacerbation. She was brought back on 05/04/2022 by EMS with shortness of breath which suddenly worsened that evening. She is placed on BiPAP and given some IV Lasix and nitropaste for complaints of intermittent chest tightness. She initially responded to Bumex but has not diuresed much more. She was in AFib RVR, and her heart rate initially was 166 but has improved with treatment of her CHF and COPD with steroids, etc. Now she can not recall any CP. She has episodes of severe SOB which start off as a bubble in her chest, progresses to coughing and then she can't breath. She is now on high flow Nasal Tx, 60L/min. HR in 90's. Records from [facility] /[place] reviewed. She is followed by Dr. Darrion Coello for cardiac problems, last seen 02/02/2022, stable. She had a STEMI with a PCI in 2006. She had chronic atrial fibrillation with rate control on Eliquis. Her last echo 06/2021: EF 67%, markedly dilated right atrium, dilated inferior vena cava, estimated pulmonary artery pressure of 55 mmHg, negative bubble study. She sees Dr. Prado for her pulmonary artery hypertension and takessildenafil, ambrisetan, and Selexipag. she also has some COPD. 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 She has chronic right heart failure. A right heart catheterization in November 2021 showed pulmonary artery pressure of 50/20 mmHg, wedge of 10 mmHg, thermodilution cardiac output of 3.7 liters/minute with an index of 2.4 liters/minute, pulmonary vascular resistance of 5.4 wood units. 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
[2022-05-05] MEDS: PANTOPRAZOLE 40 MG TABLET PO (11:44)
[2022-05-05] MEDS: ROSUVASTATIN 10 MG TABLET 40 MG BY MOUTH (11:45)
[2022-05-05] MEDS: SILDENAFIL CITRATE 20 MG TABLET 60 MG BY MOUTH ×3 (11:45→18:00)
[2022-05-05] MEDS: SPIRONOLACTONE 50 MG TABLET BY MOUTH (13:21)
[2022-05-05 14:43] LABS: Digoxin 0.5 ng/mL (0.8-2.0)
[2022-05-05] MEDS: SODIUM CHLORIDE 0.9% IV 250 ML 999 ML IV CONT (14:48)
[2022-05-05] MEDS: levoFLOXacin 500 MG/D5W 100 ML 500 MG/100 ML BAG 100 MG IVPB (14:48)
[2022-05-05] MEDS: APIXABAN 5 MG TABLET PO (16:16)
[2022-05-05] MEDS: DIGOXIN TAB 125 MCG TABLET BY MOUTH (17:08)
[2022-05-05] MEDS: AMIODARONE 360 MG/D5W 200 ML 360 MG/200 ML BAG 33.33 MG IV CONT (20:35)
[2022-05-05] MEDS: AMIODARONE 150 MG/D5W 100 ML 150 MG/100 ML BAG 600 MG IV CONT (20:35)
[2022-05-05] MEDS: AMIODARONE 360 MG/D5W 200 ML 360 MG/200 ML BAG 16.67 MG IV CONT (21:35)
[2022-05-05] MEDS: DORNASE ALFA INH SOLN 1 MG/ML 2.5 ML AMP 2.5 MG INHALATION (21:40)
[2022-05-06] VITALS (23 sets, daily range): BP systolic 90–111; BP diastolic 53–69; PULSE 57–87; RESP 14–34; TEMP 36.4–36.7; O2SAT 91–99
[2022-05-06] MEDS: methylPREDNISolone SOD SUCC 125 MG VIAL 80 MG IV PUSH ×4 (00:07→18:09)
[2022-05-06] MEDS: FLUTICASONE/SALMETEROL 230-21 MCG INHALER 1 PUFF 2 PUFF INHALATION ×3 (00:12→20:49)
[2022-05-06] MEDS: IPRATROPIUM BR 0.02% INH SOLN 0.5 MG/2.5 ML VIAL INHALATION ×4 (02:07→20:49)
[2022-05-06] MEDS: LEVOTHYROXINE SODIUM 112 MCG TABLET BY MOUTH (06:20)
[2022-05-06] MEDS: DORNASE ALFA INH SOLN 1 MG/ML 2.5 ML AMP 2.5 MG INHALATION ×2 (07:51→20:49)
--- NOTE | 2022-05-06 08:17 | WPDINTPN ---
Progress Note: A&P Assessment and Plan (1) Acute respiratory failure with hypoxia and hypercapnia: Code(s): J96.01 - Acute respiratory failure with hypoxia; J96.02 - Acute respiratory failure with hypercapnia Status: Acute Assessment and Plan: She presented with acute on chronic worsening in her shortness of breath, ABG on BiPAP 12/6 and 50% showed pH 7.299 pCO2 51.4 PO2 61 saturation 88.7%. She normally uses oxygen 2 L at rest 3 L with exertion at home. She had symptoms including a cough and nasal and chest congestion for 2 weeks prior to presentation. On April 30 she was treated with antibiotics and steroids. On May 04 she worsened and presented to the emergency department. This morning May 05 she had acute flash pulmonary edema in extremis, better after Bumex 1 mg without uop, BiPAP changes, and now with switch to AirVO, more effective and comfortable. plan: 1. AirVo alternating with BiPAP, better today. resp 20. AirVo 60L and 60%, better, and BiPAP 10/5 with 50%. 2) close monitoring and adjustments in care as indicated. 3) nutrition-poor appetite but she is allowed to eat, started on supplements - Ensure 4) Treat for COPD exacerbation- steroids, bronchodilators, vibratory valve with dornase kenya to help move secretions; she is producing no sputum even though her cough sounds horrible. She is on empiric antibiotics. 5) Continue to treat her pulmonary hypertension with her own medications which are not on our formulary, Ambrisentan, sildenafil, selexipag. 6) Atrial fibrillation is currently controlled. Amiodarone drip and oral metoprolol, on digoxin at home but not here because her blood pressure is been if sketchy. Heart rate was up 130s. 7) Continue spironolactone, 8) DVT -Eliquis and GI prophylaxis with Protonix 9) Anxiolysis; small amount alprazolam started yesterday, has not had today. Said cough medicine guaifenesin/Robitussin made her worse. Will try Tessalon Perles (2) COPD (chronic obstructive pulmonary disease): Qualifiers: COPD type: COPD with acute exacerbation Qualified Code(s): J44.1 - Chronic obstructive pulmonary disease with (acute) exacerbation Code(s): J44.9 - Chronic obstructive pulmonary disease, unspecified Status: Acute Assessment and Plan: Severe, on O2 at home, inhalers. She is now on IV steroids, bronchodilator nebulized, home inhalers. May be having exacerbation of COPD. (3) Atrial fibrillation: Qualifiers: Atrial fibrillation type: longstanding persistent Qualified Code(s): I48.11 - Longstanding persistent atrial fibrillation Code(s): I48.91 - Unspecified atrial fibrillation Status: Acute Assessment and Plan: Improved rate control after IV lopressor, getting her home medications digoxin and metoprolol, Dr Dobbs managing. Her rapid afib was due to respiratory distress. (4) Pulmonary hypertension: Code(s): I27.20 - Pulmonary hypertension, unspecified Status: Acute Assessment and Plan: She has severe pulmonary hypertension which is secondary to underlying lung disease with hypoxemia; she is on treatment with Ambrisentan, sildenafil, selexipag. There is no indication to change to Flolan. Time Spent With Patient Time with patient: less than 15 minutes Subjective Date/time seen: 05/06/22 08:17 Interval history: ICU follow-up : Sylvia You is a 76 year old female with COPD on home oxygen around the clock, pulmonary hypertension managed by Dr. James Little @ [facility], CAD with stents, and atrial fibrillation. She came to the ER Oct 19 with increased shortness of breath, was treated with steroids, and discharged. She is having worsening symptoms with shortness of breath, pulmonary ruby
[2022-05-06] MEDS: METOPROLOL TARTRATE 25 MG TABLET BY MOUTH ×2 (08:26→16:04)
[2022-05-06] MEDS: PANTOPRAZOLE 40 MG TABLET PO (08:26)
[2022-05-06] MEDS: APIXABAN 5 MG TABLET PO ×2 (08:26→16:03)
[2022-05-06] MEDS: SILDENAFIL CITRATE 20 MG TABLET 60 MG BY MOUTH ×3 (08:26→16:04)
[2022-05-06] MEDS: ROSUVASTATIN 10 MG TABLET 40 MG BY MOUTH (08:26)
[2022-05-06] MEDS: SPIRONOLACTONE 50 MG TABLET BY MOUTH (08:26)
[2022-05-06] MEDS: AMIODARONE 360 MG/D5W 200 ML 360 MG/200 ML BAG 16.67 MG IV CONT ×2 (08:31→18:09)
--- NOTE | 2022-05-06 11:30 | PM.IMPN ---
Progress Note: A&P Assessment and Plan (1) COPD (chronic obstructive pulmonary disease): Qualifiers: COPD type: COPD with acute exacerbation Qualified Code(s): J44.1 - Chronic obstructive pulmonary disease with (acute) exacerbation Code(s): J44.9 - Chronic obstructive pulmonary disease, unspecified Status: Acute Assessment and Plan: Continue nebulizers - continue with Solu-Medrol. Patient was requiring BiPAP this morning. - manage per ICU (2) Flash pulmonary edema: Code(s): J81.0 - Acute pulmonary edema Status: Acute Assessment and Plan: Continue diuretic. BiPAP as needed. (3) Atrial fibrillation: Qualifiers: Atrial fibrillation type: longstanding persistent Qualified Code(s): I48.11 - Longstanding persistent atrial fibrillation Code(s): I48.91 - Unspecified atrial fibrillation Status: Acute Assessment and Plan: -the patient is on Eliquis so we will continue with that. - Worsening heart rate this morning. IV metoprolol given and it did show improvement in her heart rate - continue with her digoxin. Continue with her metoprolol Cardiology consult echo pending (4) Pulmonary hypertension: Code(s): I27.20 - Pulmonary hypertension, unspecified Status: Acute Assessment and Plan: - an echo has been ordered. - appreciate cardiology input. (5) Asthma: Code(s): J45.909 - Unspecified asthma, uncomplicated Status: Acute Assessment and Plan: -Continue with dual nebs. - Continue steroids (6) Hx of migraines: Code(s): Z86.69 - Personal history of other diseases of the nervous system and sense organs Status: Acute Assessment and Plan: -Continue with home medication (7) Chronic diarrhea: Code(s): K52.9 - Noninfective gastroenteritis and colitis, unspecified Status: Acute Assessment and Plan: monitor (8) Hypertension: Code(s): I10 - Essential (primary) hypertension Status: Acute Assessment and Plan: - IV Bumex - continue with metoprolol (9) Hyperlipidemia: Code(s): E78.5 - Hyperlipidemia, unspecified Status: Acute Assessment and Plan: -continue with Crestor (10) Hypothyroidism: Code(s): E03.9 - Hypothyroidism, unspecified Status: Acute Assessment and Plan: -check thyroid level -continue levothyroxine. Subjective Date/time seen: 05/06/22 11:30 Respiratory status is improved. Currently on BiPAP. Exam Const: General: cooperative, healthy appearing, comfortable, no acute distress, well developed, awake, Physically active, average body habitus and well nourished Nutritional Appearance: average body habitus and well nourished Orientation/consciousness: oriented to person, oriented to place, oriented to time and patient oriented x3 Limitations: no limitations HENMT: Head: normal to inspection, No palpable skull fracture present, normocephalic, atraumatic and abrasion Ears: hearing grossly normal bilaterally and external ears normal Face/Nose/Sinus: Normal external nose present and Normal nares present Eyes: General: appearance normal, both eyes and all related structures Alignment and Position: alignment normal Periorbital: periorbital findings normal Eyelids: eyelids normal Sclera: sclerae normal Pupils: Equal, round and reactive pupils present EOM: EOMs intact bilaterally Neck: Neck: normal visual inspection, full ROM, no lymphadenopathy, trachea midline and supple Chest: Chest palpation & inspection: normal inspection of the chest Resp: Effort & Inspection: normal respiratory effort Auscultation: rhonchi and wheezes Cardio: Palpation: normal PMI Rate: tachycardic Rhythm: abnormal rhythm Heart sounds: S1 normal heart sound present and S2 normal heart sound present Peripheral pulses: Peripheral pulses 2+ throughout Other: Atrial fibrillator GI: Inspecti
[2022-05-06] MEDS: BENZONATATE 100 MG CAPSULE PO (16:05)
--- NOTE | 2022-05-06 16:35 | PM.PNCARD ---
Progress Note: A&P Assessment and Plan (1) Atrial fibrillation: Qualifiers: Atrial fibrillation type: longstanding persistent Qualified Code(s): I48.11 - Longstanding persistent atrial fibrillation Code(s): I48.91 - Unspecified atrial fibrillation Status: Acute Assessment and Plan: Persistent atrial fibrillation, admitted with RVR likely a response to her respiratory distress. Heart rate now reasonable on her usual medications, metoprolol tartrate 25 mg b.i.d. and digoxin 125 mcg daily Continue anticoagulation with Eliquis. (2) Acute respiratory failure with hypoxia and hypercapnia: Code(s): J96.01 - Acute respiratory failure with hypoxia; J96.02 - Acute respiratory failure with hypercapnia Status: Acute Assessment and Plan: History of pulmonary hypertension and COPD now with an acute exacerbation probably by a viral illness. Requiring high flow oxygen/BiPAP Treatment per hospitalist. CXR and labs tmr. (3) CAD (coronary artery disease): Code(s): I25.10 - Atherosclerotic heart disease of [place] coronary artery without angina pectoris Status: Acute Assessment and Plan: history of CAD and prior interventions, last in 2006. the patient had significant ST depression when AFib RVR suggesting ischemia, but no significant chest pain or angina Troponin neg X 1 on admission continue usual therapy with Eliquis, statin, metoprolol. Subjective Date/time seen: Sylvia You is a 76-year-old female whom we follow for her AFib RVR.? The patient was admitted with upper respiratory symptoms and had a COPD exacerbation initially requiring BiPAP and now on high-flow oxygen. She was in AFib RVR on admission with heart rates up to 166 and ischemic changes on her EKG but that has improved. There was a question of CHF w/ ProBNP 2800 and CXR showing infiiltrates, improved after treatment w/ one dose Bumex and and IV metoprolol, and addressing her pulmonary issues. She has a h/o persistent a fib, CAD and stent [address] Darrion Coello at [place], and Pulmonary Arterial HTN + COPD for which she is followed at [place] by Dr. Prado. She has chronic right heart failure. 05/06/22 16:35 Still with episodes of shortness of breath. The patient is intermittently on high-flow therapy with nasal cannula and BiPAP w/ FiO2 50%. Soft BP but better. Might want to transfer to [place]. Telemetry shows AFib heart rate in the 60s to 70s. Chest x-ray 05/05/2022: Cardiomegaly with improving pulmonary edema. (Personally reviewed; infiltrate/edema have improved. ) Review of Systems Review of Systems: No CP, palps. Some cough. No abd pain. + SOB. Exam Const: General: cooperative and comfortable; No confusion Orientation/consciousness: oriented to person, patient oriented x3 and No confusion Other: Thin, Apprehensive older lady on BiPAP, intermittent cough. HENMT: Mouth: Yes moist mucous membranes Eyes: EOM: EOMs intact bilaterally Neck: Neck: supple Resp: Effort & Inspection: normal respiratory effort Auscultation: wheezes (diffuse insp and exp) Cardio: Rate: regular rate Rhythm: regular rhythm and abnormal rhythm irregularly irregular Heart sounds: Murmur heart sound present (1/6 CAMRON LSB) GI: Inspection: normal to inspection GI Palp: No abdominal tenderness Skin: General skin exam: normal color and no rashes or lesions noted Neuro: General: oriented to person, patient oriented x3 and No confusion Extrem: Right lower extremity: no edema Left lower extremity: no edema Psych: Appearance: grossly normal Mental Status: mental status grossly normal Objective Data Vital Signs Vital Signs: Vital Signs - 24 hr 05/05/22 17:08 05/05/22 17:00 05/05/22 18:30 Temperature Pulse Rate 76 Respiratory Rate Blood Pressure 96/62 L 92/58 L Pulse Oximetry Oxygen Delivery Oxygen Flow Rate Fraction of Inspire
[2022-05-06] MEDS: ALPRAZolam (*CRX) 0.25 MG TABLET PO (18:09)
[2022-05-07] VITALS (30 sets, daily range): BP systolic 92–138; BP diastolic 55–81; PULSE 55–101; RESP 14–28; TEMP 36.4–36.8; O2SAT 93–100; BMI 19.2
[2022-05-07] MEDS: IPRATROPIUM BR 0.02% INH SOLN 0.5 MG/2.5 ML VIAL INHALATION ×4 (02:06→20:41)
[2022-05-07] MEDS: methylPREDNISolone SOD SUCC 125 MG VIAL 80 MG IV PUSH ×5 (02:32→23:46)
[2022-05-07] MEDS: BENZONATATE 100 MG CAPSULE PO ×4 (02:41→20:26)
[2022-05-07 03:58] LABS: Hematocrit 39.4 % (37.0-47.0); Hemoglobin 13.4 g/dL (12.0-15.0); Immature Granulocyte Absolute 0.02 K/mm3 (0.00-0.031); Immature Granulocyte Percent A 0.5 % (0-0.5); Lymphocytes Absolute Auto 0.23 K/mm3 (0.9-3.2); Lymphocytes Percent Auto 6.2 % (18.3-44.2); Mean Corpuscular Hemoglobin 30.9 pg (26-34); Mean Platelet Volume 10.5 fl (7.4-10.4); Monocytes Absolute Auto 0.2 K/mm3 (0.1-0.6); Neutrophils Absolute Auto 3.3 K/mm3 (1.3-6.7); Neutrophils Percent Auto 89.3 % (45.5-73.1); Platelet Count Result 100 k/mm3 (150-375); Red Blood Count 4.33 M/mm3 (4.2-5.4); Red Cell Distribution Width 13.6 % (11.5-14.5); White Blood Count 3.7 K/mm3 (4.5-10.0)
[2022-05-07 04:12] LABS: Alanine Aminotransferase 30 U/L (6-35); Albumin Level 3.7 g/dL (3.5-5.1); Alkaline Phosphatase 66 U/L (38-126); Anion Gap 10 mmol/L (8-16); Aspartate Amino Transferase 31 U/L (14-36); Bilirubin,Total 1.1 mg/dL (0.2-1.3); Blood Urea Nitrogen 20 mg/dL (7-17); Calcium 9.1 mg/dL (8.4-10.2); Carbon Dioxide 30 mmol/L (22-30); Chloride 94 mmol/L (98-107); Estimated CRCL calculation 47 ml/min; Estimated Glomerular Filt Rate > 60; Glucose 164 mg/dL (65-110); Potassium 2.9 mmol/L (3.4-5.0); Sodium 134 mmol/L (137-145)
[2022-05-07] MEDS: ALPRAZolam (*CRX) 0.25 MG TABLET PO ×3 (06:14→20:26)
[2022-05-07] MEDS: LEVOTHYROXINE SODIUM 112 MCG TABLET BY MOUTH (06:14)
[2022-05-07] MEDS: AMIODARONE 360 MG/D5W 200 ML 360 MG/200 ML BAG 16.67 MG IV CONT (06:15)
[2022-05-07 07:35] LABS: Magnesium 2.8 mg/dL (1.6-2.3); Phosphorus 3.1 mg/dL (2.5-4.5)
[2022-05-07] MEDS: DORNASE ALFA INH SOLN 1 MG/ML 2.5 ML AMP 2.5 MG INHALATION ×2 (09:24→20:41)
[2022-05-07] MEDS: FLUTICASONE/SALMETEROL 230-21 MCG INHALER 1 PUFF 2 PUFF INHALATION (09:25)
[2022-05-07] MEDS: ROSUVASTATIN 10 MG TABLET 40 MG BY MOUTH (09:54)
[2022-05-07] MEDS: PANTOPRAZOLE 40 MG TABLET PO (09:54)
[2022-05-07] MEDS: METOPROLOL TARTRATE 25 MG TABLET BY MOUTH ×2 (09:54→16:21)
[2022-05-07] MEDS: APIXABAN 5 MG TABLET PO ×2 (09:54→16:21)
[2022-05-07] MEDS: SILDENAFIL CITRATE 20 MG TABLET 60 MG BY MOUTH ×3 (09:55→16:21)
[2022-05-07] MEDS: SPIRONOLACTONE 50 MG TABLET BY MOUTH (09:55)
[2022-05-07] MEDS: POTASSIUM CHLORIDE 20 MEQ PACKET (FOR LIQUID) 40 MEQ PO (09:55)
[2022-05-07] MEDS: POTASSIUM CHLORIDE INJ 20 MEQ in SODIUM CHLORIDE 0.9% IV 500 ML 130 MEQ IVPB (10:15)
--- NOTE | 2022-05-07 11:57 | PM.IMPN ---
Progress Note: A&P Assessment and Plan (1) COPD (chronic obstructive pulmonary disease): Qualifiers: COPD type: COPD with acute exacerbation Qualified Code(s): J44.1 - Chronic obstructive pulmonary disease with (acute) exacerbation Code(s): J44.9 - Chronic obstructive pulmonary disease, unspecified Status: Acute Assessment and Plan: Continue nebulizers - continue with Solu-Medrol. currently on Airvo. Breathing much better - manage per ICU (2) Flash pulmonary edema: Code(s): J81.0 - Acute pulmonary edema Status: Acute Assessment and Plan: Continue diuretic. Airvo or BiPAP as needed (3) Atrial fibrillation: Qualifiers: Atrial fibrillation type: longstanding persistent Qualified Code(s): I48.11 - Longstanding persistent atrial fibrillation Code(s): I48.91 - Unspecified atrial fibrillation Status: Acute Assessment and Plan: -the patient is on Eliquis so we will continue with that. - Worsening heart rate this morning. IV metoprolol given and it did show improvement in her heart rate - continue with her digoxin. Continue with her metoprolol Cardiology consult echo pending (4) Pulmonary hypertension: Code(s): I27.20 - Pulmonary hypertension, unspecified Status: Acute Assessment and Plan: - an echo has been ordered. - appreciate cardiology input. (5) Asthma: Code(s): J45.909 - Unspecified asthma, uncomplicated Status: Acute Assessment and Plan: -Continue with dual nebs. - Continue steroids (6) Hx of migraines: Code(s): Z86.69 - Personal history of other diseases of the nervous system and sense organs Status: Acute Assessment and Plan: -Continue with home medication (7) Chronic diarrhea: Code(s): K52.9 - Noninfective gastroenteritis and colitis, unspecified Status: Acute Assessment and Plan: monitor (8) Hypertension: Code(s): I10 - Essential (primary) hypertension Status: Acute Assessment and Plan: - IV Bumex - continue with metoprolol (9) Hyperlipidemia: Code(s): E78.5 - Hyperlipidemia, unspecified Status: Acute Assessment and Plan: -continue with Crestor (10) Hypothyroidism: Code(s): E03.9 - Hypothyroidism, unspecified Status: Acute Assessment and Plan: -check thyroid level -continue levothyroxine. Subjective Date/time seen: 05/07/22 11:57 no complaints breathing much better Exam Const: General: cooperative, healthy appearing, comfortable, no acute distress, well developed, awake, Physically active, average body habitus and well nourished Nutritional Appearance: average body habitus and well nourished Orientation/consciousness: oriented to person, oriented to place, oriented to time and patient oriented x3 Limitations: no limitations HENMT: Head: normal to inspection, No palpable skull fracture present, normocephalic, atraumatic and abrasion Ears: hearing grossly normal bilaterally and external ears normal Face/Nose/Sinus: Normal external nose present and Normal nares present Eyes: General: appearance normal, both eyes and all related structures Alignment and Position: alignment normal Periorbital: periorbital findings normal Eyelids: eyelids normal Sclera: sclerae normal Pupils: Equal, round and reactive pupils present EOM: EOMs intact bilaterally Neck: Neck: normal visual inspection, full ROM, no lymphadenopathy, trachea midline and supple Chest: Chest palpation & inspection: normal inspection of the chest Resp: Effort & Inspection: normal respiratory effort Auscultation: rhonchi and wheezes Cardio: Palpation: normal PMI Rate: tachycardic Rhythm: abnormal rhythm Heart sounds: S1 normal heart sound present and S2 normal heart sound present Peripheral pulses: Peripheral pulses 2+ throughout Other: Atrial fibrillator GI: Inspection: normal t
--- NOTE | 2022-05-07 12:45 | PM.PNCARD ---
Progress Note: A&P Assessment and Plan (1) Atrial fibrillation: Qualifiers: Atrial fibrillation type: longstanding persistent Qualified Code(s): I48.11 - Longstanding persistent atrial fibrillation Code(s): I48.91 - Unspecified atrial fibrillation Status: Acute Assessment and Plan: Persistent atrial fibrillation, admitted with RVR likely a response to her respiratory distress. Heart rate now reasonable on her usual medications, metoprolol tartrate 25 mg b.i.d. Amiodarone has been discontinued as of this morning. Replete electrolytes keep around 4.0 quite low this morning supplemented. Will consider resuming low-dose digoxin depending on heart rate, electrolytes and renal function. Would need to be cautious with her Digoxin recommend keep levels < 1.0. Continue anticoagulation with Eliquis. (2) Acute respiratory failure with hypoxia and hypercapnia: Code(s): J96.01 - Acute respiratory failure with hypoxia; J96.02 - Acute respiratory failure with hypercapnia Status: Acute Assessment and Plan: History of pulmonary hypertension and COPD now with an acute exacerbation probably by a viral illness. Requiring high flow oxygen/BiPAP Treatment per hospitalist. Cough suppression She is off diuretic therapy and does not appear to be significantly volume overloaded although her abd appears to be more distended and slightly firm. monitor volume status closely. if any progression may benefit from resuming Bumex. patient is quite ill overall. 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 (3) CAD (coronary artery disease): Code(s): I25.10 - Atherosclerotic heart disease of [place] coronary artery without angina pectoris Status: Acute Assessment and Plan: history of CAD and prior interventions, last in 2006. the patient had significant ST depression when AFib RVR suggesting ischemia, but no significant chest pain or angina Troponin neg X 1 on admission continue usual therapy with Eliquis, statin, metoprolol. (4) Pulmonary hypertension: Code(s): I27.20 - Pulmonary hypertension, unspecified Status: Acute Assessment and Plan: right heart catheterization 12/04/2021 PVR 5.4 wedge 10 mean PA pressure 30 trans pulmonary gradient 20 SVR 1300 cardiac index 2.4 normal left and right heart filling pressures. Conclusion with this study lists etiology of pulmonary hypertension WHO group 1, however, clinically would seem group 3 more likely (based on hemodynamics). Furthermore, her RHC supports precapillary PH more consistent with Groups 1, 3, 4, and 5. Clinically, from records I see her clinical history would place her at risk for WHO Group 2 (heart disease), Group 3 (lung disease, COPD, etc), and possibly 4 (although no known or documented available history of thromboembolic disease) suggesting more a mixed pre and post capillary picture not noted on RHC. She remains on Ambrisentan, Selexipag, and Sildenafil. Defer to Pulmonology further recommendations in this regard. Subjective Date/time seen: Date of service:05/07/22 12:45 Follow-up for atrial fibrillation, heart failure, acute respiratory failure. Amiodarone discontinued this AM. HR controlled in AF. patient was doing very well ate breakfast this morning without issue and proximally hour later had a severe coughing paroxysm shortness of breath heavy placed on BiPAP received Xanax and is slowly improving. She states she is scared does not feel like she was deep but denies choking or gagging having any complications eating this morning. She denies chest pain or palpitations. Heart rate well controlled in AFib. Review of Systems Constitutional: Constitutional: Denies fever(s) Cardiovascular: Cardiovascular: Denies chest pain, Denies pedal edema, Denies leg edema, Denies lightheadedness, Reports dyspnea and Reports dyspnea on exertion Respiratory: Re
[2022-05-07 16:15] LABS: Anion Gap 8 mmol/L (8-16); Blood Urea Nitrogen 23 mg/dL (7-17); Carbon Dioxide 26 mmol/L (22-30); Chloride 98 mmol/L (98-107); Estimated CRCL calculation 47 ml/min; Estimated Glomerular Filt Rate > 60; Glucose 152 mg/dL (65-110); Magnesium 2.8 mg/dL (1.6-2.3); Potassium 3.7 mmol/L (3.4-5.0); Sodium 132 mmol/L (137-145)
--- NOTE | 2022-05-07 18:19 | WPDINTPN ---
Progress Note: A&P Assessment and Plan (1) Acute respiratory failure with hypoxia and hypercapnia: Code(s): J96.01 - Acute respiratory failure with hypoxia; J96.02 - Acute respiratory failure with hypercapnia Status: Acute Assessment and Plan: She presented with acute on chronic worsening in her shortness of breath, ABG on BiPAP 12/6 and 50% showed pH 7.299 pCO2 51.4 PO2 61 saturation 88.7%. She normally uses oxygen 2 L at rest 3 L with exertion at home. She had symptoms including a cough and nasal and chest congestion for 2 weeks prior to presentation. On April 30 she was treated with antibiotics and steroids. On May 04 she worsened and presented to the emergency department. This morning May 05 she had acute flash pulmonary edema in extremis, better after Bumex 1 mg without uop, BiPAP changes, and now with switch to AirVO, more effective and comfortable. plan: Big problem is excessive coughing with severe hypoxemia. Stop amiodarone. Her atrial fib is controlled rate. She responded well to Tessalon Perles and Xanax his potassium replacement. She only had 1 meal today breakfast. 1. AirVo alternating with BiPAP, better today. resp 20. AirVo 60L and 60%, better, and BiPAP 10/5 with 50%. 2) close monitoring and adjustments in care as indicated. 3) nutrition-poor appetite but she is allowed to eat, started on supplements - Ensure 4) Treat for COPD exacerbation- steroids, bronchodilators, vibratory valve with dornase [place] to help move secretions; she is producing no sputum even though her cough sounds horrible. She is on empiric antibiotics. 5) Continue to treat her pulmonary hypertension with her own medications which are not on our formulary, Ambrisentan, sildenafil, selexipag. 6) Atrial fibrillation is currently controlled. Stopped Amiodarone drip. DOesn ot need oral dgioxin. Not on it here, BP is higher os I gues she could tolerate it. 7) Continue spironolactone, 8) DVT -Eliquis and GI prophylaxis with Protonix 9) Anxiolysis; small amount alprazolam started yesterday, has not had today. She said cough medicine guaifenesin/Robitussin made her worse. She liked Tesslon vanessa,, now will try IV morphine. This may help with anxiety and reduce coughing. (2) COPD (chronic obstructive pulmonary disease): Qualifiers: COPD type: COPD with acute exacerbation Qualified Code(s): J44.1 - Chronic obstructive pulmonary disease with (acute) exacerbation Code(s): J44.9 - Chronic obstructive pulmonary disease, unspecified Status: Acute Assessment and Plan: Severe, on O2 at home, inhalers. She is now on IV steroids, bronchodilator nebulized, home inhalers. Exacerbation of COPD. (3) Atrial fibrillation: Qualifiers: Atrial fibrillation type: longstanding persistent Qualified Code(s): I48.11 - Longstanding persistent atrial fibrillation Code(s): I48.91 - Unspecified atrial fibrillation Status: Acute Assessment and Plan: Improved rate control after IV lopressor, now off IV amiodarone. Not back on oral digoxin yet. Her rapid afib was due to respiratory distress. (4) Pulmonary hypertension: Code(s): I27.20 - Pulmonary hypertension, unspecified Status: Acute Assessment and Plan: She has severe pulmonary hypertension which is secondary to underlying lung disease with hypoxemia; she is on treatment with Ambrisentan, sildenafil, selexipag. Plan Due to a high probability of clinically significant, life threatening deterioration, the patient required my highest level of preparedness to intervene emergently and I personally spent this critical care time directly and personally managing the patient. This critical care time included obtaining a history; examin
[2022-05-07] MEDS: MORPHINE SULFATE (*CRX) 2 MG/ML INJ 1 MG IV PUSH ×2 (18:26→20:26)
[2022-05-08] VITALS (27 sets, daily range): BP systolic 94–121; BP diastolic 52–67; PULSE 66–95; RESP 13–25; TEMP 35.9–36.8; O2SAT 85–98
[2022-05-08] MEDS: MORPHINE SULFATE (*CRX) 2 MG/ML INJ 1 MG IV PUSH ×8 (00:20→20:08)
[2022-05-08] MEDS: IPRATROPIUM BR 0.02% INH SOLN 0.5 MG/2.5 ML VIAL INHALATION ×3 (02:38→14:01)
[2022-05-08 05:11] LABS: Hematocrit 39.7 % (37.0-47.0); Hemoglobin 13.1 g/dL (12.0-15.0); Immature Platelet Fraction Pct 4.9 % (0.9-11.2); Mean Corpuscular Hemoglobin 30.2 pg (26-34); Mean Corpuscular Volume 91.5 fl (80-100); Platelet Count Result 84 k/mm3 (150-375); Red Blood Count 4.34 M/mm3 (4.2-5.4); Red Cell Distribution Width 13.6 % (11.5-14.5)
[2022-05-08 05:24] LABS: Alanine Aminotransferase 34 U/L (6-35); Albumin Level 3.5 g/dL (3.5-5.1); Alkaline Phosphatase 58 U/L (38-126); Anion Gap 11 mmol/L (8-16); Aspartate Amino Transferase 32 U/L (14-36); Bilirubin,Total 1.5 mg/dL (0.2-1.3); Blood Urea Nitrogen 24 mg/dL (7-17); Carbon Dioxide 31 mmol/L (22-30); Chloride 96 mmol/L (98-107); Estimated CRCL calculation 47 ml/min; Estimated Glomerular Filt Rate > 60; Glucose 147 mg/dL (65-110); Magnesium 2.8 mg/dL (1.6-2.3); Potassium 3.5 mmol/L (3.4-5.0); Sodium 138 mmol/L (137-145)
[2022-05-08] MEDS: BENZONATATE 100 MG CAPSULE PO ×2 (05:29→16:16)
[2022-05-08] MEDS: LEVOTHYROXINE SODIUM 112 MCG TABLET BY MOUTH (05:29)
[2022-05-08] MEDS: ALPRAZolam (*CRX) 0.25 MG TABLET PO ×2 (05:29→16:16)
[2022-05-08] MEDS: methylPREDNISolone SOD SUCC 125 MG VIAL 80 MG IV PUSH ×3 (05:29→17:07)
[2022-05-08 05:50] LABS: Band Neutrophils Percent 2 % (0-6); Lymphocytes Absolute Manual 0.15 K/mm3 (1.1-4.5); Monocytes Absolute Manual 0.06 K/mm3 (0.1-0.90); Monocytes Percent Manual 2 % (3-9); Neutrophils Absolute Manual 2.79 K/mm3 (1.7-7.2); Neutrophils Percent Manual 91 % (46-73); Platelet Estimate Adequate (Adequate); Total Cells Counted 100
[2022-05-08 05:51] LABS: Hyperchromasia 1+ (NORMAL); Schistocytes None Seen (NORMAL)
[2022-05-08] MEDS: DORNASE ALFA INH SOLN 1 MG/ML 2.5 ML AMP 2.5 MG INHALATION (07:53)
[2022-05-08] MEDS: FLUTICASONE/SALMETEROL 230-21 MCG INHALER 1 PUFF 2 PUFF INHALATION (07:54)
[2022-05-08] MEDS: SILDENAFIL CITRATE 20 MG TABLET 60 MG BY MOUTH ×3 (08:35→16:13)
[2022-05-08] MEDS: APIXABAN 5 MG TABLET PO ×2 (08:36→16:12)
[2022-05-08] MEDS: METOPROLOL TARTRATE 25 MG TABLET BY MOUTH ×2 (08:36→16:12)
[2022-05-08] MEDS: PANTOPRAZOLE 40 MG TABLET PO (08:37)
[2022-05-08] MEDS: ROSUVASTATIN 10 MG TABLET 40 MG BY MOUTH (08:37)
[2022-05-08] MEDS: SPIRONOLACTONE 50 MG TABLET BY MOUTH (08:37)
[2022-05-08] MEDS: POTASSIUM CHLORIDE 20 MEQ TABLET PO (09:18)
[2022-05-08] MEDS: DIGOXIN TAB 125 MCG TABLET PO (09:18)
[2022-05-08] MEDS: SALINE 0.65% NAS SOLN 44 ML BTL 1 SPRAY NASAL ×3 (10:19→16:15)
[2022-05-08] MEDS: OXYMETAZOLINE HCL 0.05% NAS 15 ML BTL (*BKC) 1 SPRAY NASAL (10:19)
--- NOTE | 2022-05-08 10:47 | WPDINTPN ---
Progress Note: A&P Assessment and Plan (1) Acute respiratory failure with hypoxia and hypercapnia: Code(s): J96.01 - Acute respiratory failure with hypoxia; J96.02 - Acute respiratory failure with hypercapnia Status: Acute Assessment and Plan: Multifactorial acute respiratory failure secondary to COPD exacerbation pulmonary hypertension and possible pulmonary edema. She may have had a viral URI that started all the symptoms. Patient was seen in the ER on 05/02 and was discharged with steroids and antibiotics. She took Levaquin for 2 days Now presented with increased hypoxia and respiratory distress. Afebrile. WBC normal She is on bronchodilators and steroids She has been on and off BiPAP. I have transitioned her this morning to Airvo. She is on 50 L flow and 50-60% FiO2. Continue BiPAP/AVAPS p.r.n. and at night Her BNP is elevated she did receive some Lasix but at this time does not appear volume overloaded. Blood and sputum cultures were sent on admission but she was not started on antibiotics. She has been afebrile since admission and WBCs normal. Her cough is mostly dry. I will check procalcitonin level. I will also check CT noncontrast to better evaluate her lung parenchyma since the chest x-ray only shows cardiomegaly and atelectasis no consolidation or edema at this point For pulmonary hypertension patient is continuing home medication of ambrisentan, selexiplag and sildenafil Continue bronchodilators Continue steroids Ordered saline nasal spray and Afrin nasal spray for nasal congestion (2) CAD (coronary artery disease): Code(s): I25.10 - Atherosclerotic heart disease of [place] coronary artery without angina pectoris Status: Acute Assessment and Plan: History of coronary disease status post PCI in the past On Eliquis, statin, beta-fausto (3) COPD (chronic obstructive pulmonary disease): Qualifiers: COPD type: COPD with acute exacerbation Qualified Code(s): J44.1 - Chronic obstructive pulmonary disease with (acute) exacerbation Code(s): J44.9 - Chronic obstructive pulmonary disease, unspecified Status: Acute Assessment and Plan: See above (4) Pulmonary hypertension: Code(s): I27.20 - Pulmonary hypertension, unspecified Status: Acute Assessment and Plan: See above (5) Flash pulmonary edema: Code(s): J81.0 - Acute pulmonary edema Status: Acute Assessment and Plan: See above (6) Atrial fibrillation: Qualifiers: Atrial fibrillation type: longstanding persistent Qualified Code(s): I48.11 - Longstanding persistent atrial fibrillation Code(s): I48.91 - Unspecified atrial fibrillation Status: Acute Assessment and Plan: Off amnio drip. Resume digoxin Continue Eliquis Plan DVT prophylaxis -on Eliquis Stress ulcer prophylaxis -on PPI Nutrition -advance diet Code Status - Full Code I spoke to [facility] transfer center. Patient receives her care at [facility] and has her sports book server and Pulmonary physician there. She and her family requests to be transferred. Patient has been accepted by Dr. Mojica and is waiting for bed assignment. Patient will be transferred on BiPAP once bed is available unless her respiratory status deteriorates. I have discussed with patient and explained the risk of transfer which includes deterioration of respiratory status which can be detrimental and life-threatening. She understands the risks and verbalized understanding and wants to be transferred. She does not want to be intubated unless there was no other choice left and was absolutely necessary. Total Critical Care Time - 35 minutes Due to a high probability of clinically significant, life threatening deterioration, the patient required my highest level of preparedness to intervene emergently and I personally spent this critical care time directly and personally managing the patient. This critical care time inc
--- NOTE | 2022-05-08 11:26 | PM.IMPN ---
Progress Note: A&P Assessment and Plan (1) COPD (chronic obstructive pulmonary disease): Qualifiers: COPD type: COPD with acute exacerbation Qualified Code(s): J44.1 - Chronic obstructive pulmonary disease with (acute) exacerbation Code(s): J44.9 - Chronic obstructive pulmonary disease, unspecified Status: Acute Assessment and Plan: Continue nebulizers - continue with Solu-Medrol. currently on Airvo. Breathing much better - manage per ICU (2) Flash pulmonary edema: Code(s): J81.0 - Acute pulmonary edema Status: Acute Assessment and Plan: Continue diuretic. Airvo or BiPAP as needed (3) Atrial fibrillation: Qualifiers: Atrial fibrillation type: longstanding persistent Qualified Code(s): I48.11 - Longstanding persistent atrial fibrillation Code(s): I48.91 - Unspecified atrial fibrillation Status: Acute Assessment and Plan: -the patient is on Eliquis so we will continue with that. - heart rate under better control - continue with her digoxin. Continue with her metoprolol Cardiology following echo noted (4) Pulmonary hypertension: Code(s): I27.20 - Pulmonary hypertension, unspecified Status: Acute Assessment and Plan: - echo noted. - appreciate cardiology input And ICU input (5) Asthma: Code(s): J45.909 - Unspecified asthma, uncomplicated Status: Acute Assessment and Plan: -Continue with duo nebs. - Continue steroids (6) Hx of migraines: Code(s): Z86.69 - Personal history of other diseases of the nervous system and sense organs Status: Acute Assessment and Plan: -Continue with home medication (7) Chronic diarrhea: Code(s): K52.9 - Noninfective gastroenteritis and colitis, unspecified Status: Acute Assessment and Plan: monitor (8) Hypertension: Code(s): I10 - Essential (primary) hypertension Status: Acute Assessment and Plan: monitor blood pressure (9) Hyperlipidemia: Code(s): E78.5 - Hyperlipidemia, unspecified Status: Acute Assessment and Plan: -continue with Crestor (10) Hypothyroidism: Code(s): E03.9 - Hypothyroidism, unspecified Status: Acute Assessment and Plan: -check thyroid level -continue levothyroxine. Subjective Date/time seen: 05/08/22 11:26 Reports breathing is better. Still on Airvo 50L at 50%. Denies any new complaints Exam Narrative: GEN: ? Alert, oriented, no respiratory distress, She is on BiPAP 04/18 with 65% oxygen. ? HEENT: pupils are equal, EOMI, symmetrical face; oral membranes not examined as she has a BiPAP on NECK:? Trachea is midline, CHEST:? Equal air entry, symmetric excursion, scattered crackles throughout both lung alvarez mainly in lower lobes, overall decreased air entry CV: ? Irregular S1-S2 controlled rate ABD : (+) bowel sounds Extremities : no clubbing, cyanosis, or edema; she has dilated superficial veins on lower legs but no significant edema PSYCH:? Anxious. Objective Data Vital Signs Vital Signs: Vital Signs - 24 hr 05/07/22 12:00 05/07/22 12:00 05/07/22 12:00 Temperature 98 F Pulse Rate 78 84 Respiratory Rate 24 H Blood Pressure 104/55 L Pulse Oximetry 100 99 Oxygen Delivery BiPAP Oxygen Flow Rate Fraction of Inspired Oxygen 80 05/07/22 14:00 05/07/22 12:15 05/07/22 14:05 Temperature Pulse Rate 84 66 73 Respiratory Rate 22 H 18 18 Blood Pressure 110/61 Pulse Oximetry 100 96 Oxygen Delivery BiPAP Oxygen Flow Rate Fraction of Inspired Oxygen 05/07/22 14:17 05/07/22 14:00 05/07/22 15:57 Temperature Pulse Rate 72 86 Respiratory Rate 18 Blood Pressure Pulse Oximetry 97 Oxygen Delivery BiPAP Oxygen Flow Rate Fraction of Inspired Oxygen 70 05/07/22 16:21 05/07/22 16:00 05/07/22 16:00 Temperature 97.6 F Pulse Rate 98 101 H 84 Respi
--- NOTE | 2022-05-08 12:20 | PCFNICU ---
ICU Rounding Note: Pt current nutrition is heart healthy, ensure compact TID. Last recorded weight is 51.6 kg. Bowel Motility: Per nurse Pt has not had a BM since arrival Labs Reviewed: BUN: 24, Glucose: 147 Meds Noted: xanax, eliquis, tessalon, lanoxin, pulmozyme, robitussin, atrovent, xopenex, syntyroid, solu-medrol, lopressor, afrin nasal, protonix, crestor, revatro, aldacton Skin: no wounds, skin is red warm and dry Additional Notes: Pt had meds with applesauce this am and was coughing a lot. Pt says she is scared to drink her ensure due to her intense coughing. PO intake reduced to 35% intake, due to SOB pt is tired and can't eat. Pt temporary NPO. Per Pt and Doctor (during rounding) will assess and see how pt is doing during lunch. Following daily in ICU rounds. Monitor intakes, weights, labs, supplement tolerance, plan of care Follow up in 3 days.
--- NOTE | 2022-05-08 12:37 | PM.PNCARD ---
Progress Note: A&P Assessment and Plan (1) Atrial fibrillation: Qualifiers: Atrial fibrillation type: longstanding persistent Qualified Code(s): I48.11 - Longstanding persistent atrial fibrillation Code(s): I48.91 - Unspecified atrial fibrillation Status: Acute Assessment and Plan: Persistent atrial fibrillation, admitted with RVR likely a response to her respiratory distress. Heart rate now reasonable on her usual medications, metoprolol tartrate 25 mg b.i.d. Replete electrolytes keep around 4.0 quite low this morning supplemented. Low-dose digoxin has been resumed. Need to be cautious with her Digoxin recommend keep levels < 1.0. Check digoxin level in a.m. Continue anticoagulation with Eliquis. (2) Acute respiratory failure with hypoxia and hypercapnia: Code(s): J96.01 - Acute respiratory failure with hypoxia; J96.02 - Acute respiratory failure with hypercapnia Status: Acute Assessment and Plan: History of pulmonary hypertension and COPD now with an acute exacerbation probably by a viral illness. Requiring high flow oxygen/BiPAP Treatment per hospitalist. Cough suppression She is off diuretic therapy and does not appear to be significantly volume overloaded. Continue to monitor closely for volume overload (3) CAD (coronary artery disease): Code(s): I25.10 - Atherosclerotic heart disease of [place] coronary artery without angina pectoris Status: Acute Assessment and Plan: history of CAD and prior interventions, last in 2006. the patient had significant ST depression when AFib RVR suggesting ischemia, but no significant chest pain or angina Troponin neg X 1 on admission continue usual therapy with Eliquis, statin, metoprolol. (4) Pulmonary hypertension: Code(s): I27.20 - Pulmonary hypertension, unspecified Status: Acute Assessment and Plan: Defer to Pulmonology further recommendations in this regard. Subjective Date/time seen: 05/08/22 12:37 Cardiology follow up for atrial fibrillation Interval history: Breathing better today. Still feels anxious that she is going to have acute respiratory distress. No chest pain or palpitations. Afib rate controlled. Review of Systems Constitutional: Constitutional: Denies fever(s) Cardiovascular: Cardiovascular: Denies chest pain, Denies pedal edema, Denies leg edema, Denies lightheadedness, Reports dyspnea and Reports dyspnea on exertion Respiratory: Respiratory: Reports chest congestion, Reports dyspnea, Reports dyspnea on exertion and Reports wheezing Gastrointestinal: Gastrointestinal: Reports abdominal pain, Denies hematochezia and Reports diarrhea Genitourinary: Genitourinary: Denies hematuria Musculoskeletal: Musculoskeletal: Reports no additional musculoskeletal complaints Integumentary/Breasts: Skin/Breast: Reports system reviewed and no additional complaints, except as docu Neurologic: Reports system reviewed and no additional complaints, except as documented, Denies behavioral changes and Denies confusion Psychiatric: Psychiatric: Denies behavioral changes and Denies confusion Allergic/Immunologic: Allergic/Immunologic: Reports wheezing Exam Const: General: cooperative, comfortable and anxious; No confusion Orientation/consciousness: oriented to person, patient oriented x3 and No confusion Other: Thin, apprehensive older lady on BiPAP, appears slightly anxious, exhausted BiPAP in place. HENMT: Head: normal to inspection Mouth: Yes moist mucous membranes Eyes: EOM: EOMs intact bilaterally Neck: Neck: supple and no JVD Thyroid: thyroid normal Resp: Effort & Inspection: normal respiratory effort Auscultation: wheezes (diffuse insp and exp) Cardio: Rate: regular rate Rhythm: abnormal rhythm irregularly irregular Heart sounds: Murmur heart sound present (1/6 CAMRON LSB) GI: Inspection: normal to inspection Auscultation: normal bow
[2022-05-08 16:21] LABS: EDCOVIDSCREEN Negative (Negative)
--- NOTE | 2022-05-08 20:45 | PC.NURSE ---
All belongings and home meds gathered and sent with patient. Patient left via [facility]. Bismark (son) notified of patient departure to [facility] for room 8407. Mikayla BOWEN notified who will be the PM receiving nurse. No further questions.
--- NOTE | 2022-05-31 07:27 | P.TS_ITS ---
Transfer Discharge Sum: Prov Provider Date of admission: 05/05/22 12:43 Primary care physician: Riaz Onofre, Admitting clinician: Darrion Jackson MD Consults: 05/05/22 Consult to Physician Routine Comment: Consulting Provider: Jennifer Busch appliance technician/MD group to consult: Reason for consultation: Bipap with flash pulmonary edema, pulmonary HTN Has provider been notified: Yes Consult to Physician Routine Comment: Consulting Provider: Tiara Dobbs Reason for consultation: A. fib with RVR Has provider been notified: Yes DS: Admitting Diagnosis Discharge Date 05/08/22 Admitting Diagnosis sob chf - right heart failure copd pulmonary hypertension Transfer Discharge Sum: Med Medications Active and Home Medications: Home Medications apixaban 5 mg tablet (Eliquis) 5 mg PO BID 05/23/21 [History Confirmed 05/04/22] digoxin 125 mcg (0.125 mg) tablet 125 mcg PO DAILY 05/23/21 [History Confirmed 05/04/22] selexipag 600 mcg tablet (Uptravi) 800 mcg PO BID 05/23/21 [History Confirmed 05/04/22] ipratropium 0.5 mg-albuterol 3 mg (2.5 mg base)/3 mL nebulization soln 3 ml inhalation Q6H PRN shortness of breath #180 mL 05/24/21 [Rx Confirmed 05/04/22] ambrisentan 10 mg tablet 10 mg PO DAILY 05/04/22 [History Confirmed 05/04/22] bumetanide 1 mg tablet 1 mg DAILY 05/04/22 [History Confirmed 05/04/22] fluticasone 500 mcg-salmeterol 50 mcg/dose blistr powdr for inhalation (Wixela Inhub) 1 inh inhalation Q12H 05/04/22 [History Confirmed 05/04/22] levofloxacin 500 mg tablet 500 mg PO DAILY 05/04/22 [History Confirmed 05/04/22] levothyroxine 112 mcg tablet 125 mcg DAILY 05/04/22 [History Confirmed 05/04/22] metoprolol tartrate 25 mg tablet 12.5 mg BID 05/04/22 [History Confirmed 05/04/22] pantoprazole 40 mg tablet,delayed release 40 mg PO DAILY 05/04/22 [History Confirmed 05/04/22] prednisone 20 mg tablet 40 mg DAILY 05/04/22 [History Confirmed 05/04/22] rosuvastatin 40 mg tablet 40 mg DAILY 05/04/22 [History Confirmed 05/04/22] sildenafil (pulm.hypertension) 20 mg tablet 60 mg TID 05/04/22 [History Confirmed 05/04/22] spironolactone 50 mg tablet 25 mg DAILY 05/04/22 [History Confirmed 05/04/22] tiotropium bromide 2.5 mcg/actuation mist for inhalation (Spiriva Respimat) 2 puff inhalation DAILY 05/04/22 [History Confirmed 05/04/22] Transfer Discharge Sum: Hosp Hospital Course Hospital course: Sylvia You is a 77 year old female admitted for sob and worsening right heart failure 2/2 pulm htn, copd. Patient was admitted to ICU and managed but was slow to improved. ICU physician transferred patient to tertiary hospital where her pulmonary physicians were. Time Spent with Patient Time attestation: Total time spent providing and/or coordinating transfer services:
== END 2022-05-08 20:50 | disposition short-term general hospital (02) | DRG 190 ==
LOC: ANHED 06:04 → ANHIMU 08:35 → ANHICU 05-05 10:23
PROVIDERS: Internal Medicine; Internal Medicine Critical Care Medicine; Nurse Practitioner; Admitting Provider Chiropractor; Emergency Provider Preventive Medicine Aerospace Medicine; PCP Family Medicine; Visit Provider Chiropractor
DX: J44.1 Chronic obstructive pulmonary disease with (acute) exacerbation (principal); J96.02 Acute respiratory failure with hypercapnia; J96.21 Acute and chronic respiratory failure with hypoxia; I48.11 Longstanding persistent atrial fibrillation; I50.813 Acute on chronic right heart failure; I27.20 Pulmonary hypertension, unspecified; E78.5 Hyperlipidemia, unspecified; E03.9 Hypothyroidism, unspecified; F41.9 Anxiety disorder, unspecified; I11.0 Hypertensive heart disease with heart failure; I25.10 Atherosclerotic heart disease of native coronary artery without angina pectoris; I25.2 Old myocardial infarction; K52.9 Noninfective gastroenteritis and colitis, unspecified; K21.9 Gastro-esophageal reflux disease without esophagitis; K74.60 Unspecified cirrhosis of liver; Z20.822 Contact with and (suspected) exposure to COVID-19; Z99.81 Dependence on supplemental oxygen; Z88.0 Allergy status to penicillin; Z98.49 Cataract extraction status, unspecified eye; Z95.5 Presence of coronary angioplasty implant and graft; Z90.49 Acquired absence of other specified parts of digestive tract; Z79.01 Long term (current) use of anticoagulants; Z86.69 Personal history of other diseases of the nervous system and sense organs
CPT/HCPCS: 36415; 36600; 71045; 71046; 71250; 80048; 80053; 80162; 82375; 82805; 83050; 83735; 83880; 84100; 84145; 84439; 84443; 84480; 84484; 85025; 85055; 87040; 87070; 87205; 87426; 87502; 93005; 93306; 94002; 94003; 94640; 96372; 99283; 99291; A9270; C9803; J0282; J1100; J1160; J1940; J1956; J2060; J2270; J2920; J2930; J3475; J3480; J7040; J7050; U0003; U0005